=== PATIENT | female | born 1960 | race Caucasian/White ===

== ENCOUNTER 2016-12-16 11:37 | Emergency (ER) | payer OTHER ==
[2016-12-16] MEDS ORDERED: HYDROmorphone INJ* 1 MG/ML CARPUJECT SYRINGE IV ONE ×2 (12:25→13:51)
[2016-12-16] MEDS ORDERED: NS 0.9% 1000 ML* 1,000 ML IV ONE (12:25)
[2016-12-16] MEDS ORDERED: LORazepam INJ* 2 MG/ML 1 ML VIAL IV PUSH ONE (12:26)
[2016-12-16] MEDS ORDERED: Ondansetron INJ* 2 MG/ML VIAL ONE (12:37)
[2016-12-16 12:48] LABS: Hematocrit 45 % (35-47); Hemoglobin 14.8 g/dl (12.0-16.0); Mean Corpuscular HGB Conc 33 g/dl (31-36); Mean Corpuscular Hemoglobin 30 pg (27-31); Mean Corpuscular Volume 91 fL (80-97); Mean Platelet Volume 9 um3 (7.4-10.4); Red Blood Count 4.94 10^6/ul (4.0-5.4); Red Cell Distribution Width 14 % (10.5-15); White Blood Count 7.3 10^3/ul (3.5-10.8)
[2016-12-16 13:10] LABS: Albumin 4.2 g/dL (3.2-5.2); BUN/Creatinine Ratio 16.3 (8-20); C Reactive Protein 5.73 mg/L (< 5.00); Calcium 9.6 mg/dL (8.6-10.3); EGFR African American 87.8 (>60); EGFR Non-African American 68.3 (>60); Globulin 3.7 g/dL (2-4); Total Bilirubin 0.5 mg/dL (0.2-1.0); Total Protein 7.9 g/dL (6.4-8.9)
[2016-12-16] MEDS ORDERED: Ondansetron INJ* 2 MG/ML VIAL IV ONE (13:51)
--- NOTE | 2016-12-16 15:15 | RAD ---
INDICATION: Chronic, atraumatic back and leg pain. COMPARISON: CT abdomen pelvis October 05, 2011 TECHNIQUE: Noncontrast axial source images was performed from the thoracolumbar junction to the sacrum. Coronal and and sagittal reformatted images were generated. FINDINGS: Vertebrae: There is no fracture or acute focal bony lesion. Alignment: The lumbar vertebrae are normally aligned. Central Canal/Neuroforamina: L1-L2: minor circumferential bulging the disc and moderate facet arthropathy. Wide canal and foraminal patency. L2-L3: Mild broad-based circumferential bulging the disc. No significant canal or foraminal compromise. Minor facet overgrowth. L3-L4: Minor facet overgrowth. Wide canal and foraminal patency. L4-L5: Moderate disc space narrowing with 2 mm retrolisthesis of L4 relative to L5. Moderate-sized central disc herniation likely impinging upon the L5 nerve root within the canal. L5-S1 moderate broad-based circumferential bulging the disc. No direct nerve root impingement or significant canal compromise. Note that MR imaging is a more sensitive method to evaluate the canal and foramina. Intervertebral disc spaces: The disc spaces are maintained. Soft tissues: The paravertebral soft tissues are normal. Other: None IMPRESSION: MULTIPLE DEGENERATIVE DISC DISEASE. THE MOST SIGNIFICANT FINDINGS ARE AT L4-L5 WHERE THERE IS A MODERATE-SIZED CENTRAL DISC HERNIATION IMPINGING ON THE L5 NERVE ROOTS BILATERALLY.
--- NOTE | 2016-12-16 16:00 | ED ---
Cecelia Purdy Janilya, scribed for Chloe Tate MD on 12/16/16 at 1228 . Back Pain - HPI Summary HPI Summary: A 56 y/o female came in to [facility] presenting w/ a gradual onset of constant lower back pain starting 2 days ago. Pt reports she felt fine on 12/14/2016, and after she came home, her lower back "felt funny". Pt states she was carrying laundry baskets. Pt c/o tailbone pain that radiates to both of her legs. In addition, she states both of her legs are numb and tingly. Pt feels weak when she stands up due to leg pain. No PMHx DM, HTN. PMHx hypothyroidism, diverticulitis, asthma Pt has hx of back problems, but no back surgeries. 4 years ago, she was diagnosed as "tailbone unalignment", but has not had problems since then. 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 - History of Current Complaint Chief Complaint: EDBackInjuryPain Stated Complaint: BACK PAIN Time Seen by Provider: 12/16/16 12:07 Onset/Duration: Gradual Onset, Lasting Days, Still Present Onset/Duration: Started Days Ago, Atraumatic, Still Present Timing: Constant, Lasting Days Severity Initially: Moderate Severity Currently: Moderate Pain Intensity: 10 Pain Scale Used: 0-10 Numeric Aggravating Symptom(s): Movement Alleviating Symptom(s): Rest Associated Signs And Symptoms: Positive: Weakness, Numbness, Tingling Related History: Similar Episode Dx As - tailbone unalignment - Risk Factors AAA Risk Factors: Negative TAD Risk Factors: Negative Cauda Equina Risk Factors: Negative Epidural Abscess Risk Factors: Negative - Allergies/Home Medications Allergies/Adverse Reactions: Allergies Allergy/AdvReac Type Severity Reaction Status Date / Time Codeine Allergy Hives Verified 08/18/15 10:08 Ibuprofen [From Advil] Allergy Hives Verified 08/18/15 10:08 Home Medications: Home Medications Albuterol 2.5MG/3ML (0.083%)* [Ventolin 2.5 MG/3 ML NEB.RA*] 2.5 mg INH Q6H PRN 12/16/16 [History Confirmed 12/16/16] Albuterol Sulfate [Proair Respiclick] 2 puff INH Q6HR PRN 12/16/16 [History Confirmed 12/16/16] Levothyroxine TAB* [Synthroid TAB*] 100 mcg PO QAM 12/16/16 [History Confirmed 12/16/16] Sertraline* [Zoloft*] 100 mg PO DAILY 12/16/16 [History Confirmed 12/16/16] PMH/Surg Hx/FS Hx/Imm Hx Endocrine/Hematology History: Reports: Hx Thyroid Disease - hypo Cardiovascular History: Denies: Hx Hypertension Respiratory History: Reports: Hx Asthma, Hx Chronic Obstructive Pulmonary Disease (COPD) GI History: Reports: Hx Diverticulosis Musculoskeletal History: Reports: Hx Back Problems Infectious Disease History: No Infectious Disease History: Denies: Traveled Outside the [place] in Last 30 Days - Family History Known Family History: Negative: Hypertension, Diabetes - Social History Occupation: Employed Full-time Lives: With Family Alcohol Use: None Substance Use Type: Reports: None Hx Tobacco Use: Yes Smoking Status (MU): Light Every Day Tobacco Smoker Review of Systems Positive: Arthralgia - tailbone pain Positive: Weakness, Paresthesia - in legs, Numbness - in legs All Other Systems Reviewed And Are Negative: Yes Physical Exam Triage Information Reviewed: Yes Vital Signs On Initial Exam: Initial Vitals Temp Pulse Resp BP Pulse Ox 98.6 F 80 20 121/78 94 12/16/16 12:12 12/16/16 12:12 12/16/16 12:12 12/16/16 12:12 12/16/16 12:12 Vital Signs Reviewed: Yes Appearance: Positive: Well-Appearing, No Pain Distress Skin: Positive: Warm, Skin Color Reflects Adequate Perfusion, Dry Eyes: Positive: EOMI, ALFREDO ENT: Positive: Pharynx normal, TMs normal Neck: Positive: Supple, Nontender Cardiovascular: Positive: RRR. Negative: Murmur, Rub - no gallops Abdomen Description: Positive: Nontender, Soft. Negative: Distended, Guarding - no rebound Bowel Sounds: Positive: Present Musculoskeletal: Negative: Strength/ROM Intact - tailbone tenderness in sacrum, Edema Left, Edema Right Neurological: Positive: Sensory/Motor Intact, Alert, Oriented to Person Place, Time, CN Intact II-III Psychiatric: Positive: Affect/Mood Appropriate Diagnostics - Vital Signs Vital Signs Temp Pulse Resp BP Pulse Ox 12/16/16 12:12 98.6 F 80 20 121/78 94 - Laboratory Lab Results: Lab Results 12/16/16 12/16/16 Range/Units 12:30 12:30 WBC 7.3 (3.5-10.8) 10^3/ul RBC 4.94 (4.0-5.4) 10^6/ul Hgb 14.8 (12.0-16.0) g/dl Hct 45 (35-47) % MCV 91 (80-97) fL MCH 30 (27-31) pg MCHC 33 (31-36) g/dl RDW 14 (10.5-15) % Plt Count 246 (150-450) 10^3/ul MPV 9 (7.4-10.4) um3 Neut % (Auto) 62.5 (38-83) % Lymph % (Auto) 23.6 L (25-47) % [place] % (Auto) 11.1 H (1-9) % Eos % (Auto) 2.0 (0-6) % Baso % (Auto) 0.8 (0-2) % Absolute Neuts (auto) 4.5 (1.5-7.7) 10^3/ul Absolute Lymphs (auto) 1.7 (1.0-4.8) 10^3/ul Absolute Monos (auto) 0.8 (0-0.8) 10^3/ul Absolute Eos (auto) 0.1 (0-0.6) 10^3/ul Absolute Basos (auto) 0.1 (0-0.2) 10^3/ul Absolute Nucleated RBC 0 10^3/ul Nucleated RBC % 0 Sodium 136 (133-145) mmol/L Potassium 4.0 (3.5-5.0) mmol/L Chloride 105 (101-111) mmol/L Carbon Dioxide 26 (22-32) mmol/L Anion Gap 5 (2-11) mmol/L BUN 14 (6-24) mg/dL Creatinine 0.86 (0.51-0.95) mg/dL Est GFR ( Amer) 87.8 (>60) Est GFR (Non-Af Amer) 68.3 (>60) BUN/Creatinine Ratio 16.3 (8-20) Glucose 95 (70-100) mg/dL Calcium 9.6 (8.6-10.3) mg/dL Total Bilirubin 0.50 (0.2-1.0) mg/dL AST 16 (13-39) U/L ALT 17 (7-52) U/L Alkaline Phosphatase 75 (34-104) U/L C-Reactive Protein 5.73 H (< 5.00) mg/L Total Protein 7.9 (6.4-8.9) g/dL Albumin 4.2 (3.2-5.2) g/dL Globulin 3.7 (2-4) g/dL Albumin/Globulin Ratio 1.1 (1-3) Result Diagrams: 12/16/16 12:30 12/16/16 12:30 Lab Statement: Any lab studies that have been ordered have been reviewed, and results considered in the medical decision making process. - CT lumbar spine CT Interpretation: Positive (See Comments) - IMPRESSION: MULTIPLE DEGENERATIVE DISC DISEASE. THE MOST SIGNIFICANT FINDINGS ARE AT L4-L5 WHERE THERE IS A MODERATE-SIZED CENTRAL DISC HERNIATION IMPINGING ON THE L5 NERVE RO[address]S BILATERALLY. CT Interpretation Completed By: Radiologist Back Pain Course/Dx - Course Course Of Treatment: 56 yo with pain over sacrum CT shows nerve root impingement no true neurologic signs some radicular pain down both legs but normal great toe strength patellar dtr's are a 1. Able to ambulate after pain meds close f/u with pmd, made pt and her aware of need to come back for worsened symptoms and he will watch her carefully on her pain meds - Diagnoses Provider Diagnoses: Degenerative disk disease Discharge - Discharge Plan Condition: Stable Disposition: HOME Prescriptions: Cyclobenzaprine TAB* [Flexeril TAB*] 10 mg PO TID PRN #20 tab PRN Reason: Spasms oxyCODONE/Acetamin 5/325 MG* [Percocet 5/325 TAB*] 1 tab PO Q6H PRN #20 tab MDD 4 PRN Reason: Pain Patient Education Materials: Back Pain (ED) Forms: *Work Release Referrals: Non Staff,Doctor [Primary Care Provider] - Additional Instructions: Follow up with your primary care provider if symptoms persist or worsen. The documentation as recorded by the Cecelia reagan Janilya accurately reflects the service I personally performed and the decisions made by me, Chloe Tate MD.
[2016-12-16 16:10] VITALS: BP 101/68
== END 2016-12-16 16:09 | disposition home or self-care (01) ==
LOC: ED 11:37
DX: M51.36 Other intervertebral disc degeneration, lumbar region (principal); R20.9 Unspecified disturbances of skin sensation; M54.5 Low back pain; R53.1 Weakness; F17.210 Nicotine dependence, cigarettes, uncomplicated
CPT/HCPCS: 36415; 72131; 80053; 85025; 86140; 96374; 96375; 99283; J1170; J2060; J2405

== ENCOUNTER 2017-11-11 10:47 | Observation (INO) | payer OTHER ==
[~2017-11-11 10:47] MED LIST: Buffered Lidocaine 0.9% SYRIN* 5 ML/SYR SYRINGE INTRADERM ONE; DiMENhydriNATE IV* 50 MG/ML VIAL IV PUSH PRN; Famotidine IV* 10 MG/ML 2 ML (20 mg) IV ONE; Morphine INJ* 2 MG/ML 1 ML CARPUJECT IV PRN; PROCHLORPERAZINE INJ 5 MG/ML 2 ML VIAL IV PRN; oxyCODONE/Acetamin 5/325 MG* TAB PO PRN
[2017-11-11] MEDS ORDERED: Buffered Lidocaine 0.9% SYRIN* 5 ML/SYR SYRINGE ONE (10:52)
[2017-11-11] MEDS ORDERED: Famotidine IV* 10 MG/ML 2 ML (20 mg) ONE (10:52)
[2017-11-11] MEDS ORDERED: ceFAZolin 2 GM PREMIX (*) 2 GM/50 ML BAG IVPB ONE (10:52)
[2017-11-11] MEDS ORDERED: Bacitracin IV* 50,000 UNITS INJ ONE (11:36)
[2017-11-11] MEDS ORDERED: Lidocaine 1.5% EPI 1:200,000* 30 ML SDV ONE (11:36)
[2017-11-11] MEDS ORDERED: Thrombin 5,000 UNITS* 1 APPLIC KIT - topical use - TOPICAL ONE (11:36)
[2017-11-11] MEDS ORDERED: Midazolam* 1 MG/ML 10 ML VIAL (10 MG) ONE (11:48)
[2017-11-11] MEDS ORDERED: KETAMINE HCL* 50 MG/ML 10 ML VIAL ONE (11:48)
[2017-11-11] MEDS ORDERED: fentaNYL* 50 MCG/ML 2 ML VIAL (100 MCG VIAL) ONE ×2 (11:48→14:25)
[2017-11-11] MEDS ORDERED: Atracurium* 10 MG/ML 10 ML VIAL ONE (11:48)
[2017-11-11] MEDS ORDERED: Lidocaine 2% PF * 5 ML VIAL ONE (12:53)
[2017-11-11] MEDS ORDERED: Phenylephrine IV* 40 MCG/ML 10 ML SYRINGE ONE (12:53)
[2017-11-11] MEDS ORDERED: Glycopyrrolate IV* 0.2 MG/ML 1 ML VIAL ONE (12:54)
[2017-11-11] MEDS ORDERED: Neostigmine Methylsulfate* 2 MG/2 ML SYRINGE ONE (12:54)
[2017-11-11] MEDS ORDERED: Propofol* 10 MG/ML 20 ML BTL IV PUSH ONE (12:54)
[2017-11-11] MEDS ORDERED: Ondansetron INJ* 2 MG/ML VIAL ONE (12:54)
[2017-11-11] MEDS ORDERED: EPHEDrine (Pressors)* 50 MG/ML VIAL ONE (12:54)
[2017-11-11] MEDS ORDERED: Dexamethasone IV* 4 MG/ML 1 ML (4 MG) ONE (12:54)
[2017-11-11] MEDS ORDERED: Acetaminophen TAB* 325 MG PO PRN (14:01)
[2017-11-11] MEDS ORDERED: Albuterol HFA INHALER* 8 gm MDI INH PRN (14:15)
[2017-11-11] MEDS ORDERED: DiMENhydriNATE IV* 50 MG/ML VIAL ONE (14:25)
[2017-11-11] MEDS: fentaNYL* 50 MCG/ML 2 ML VIAL (100 MCG VIAL) IV PRN ×4 (14:27→15:39)
[2017-11-11] MEDS ORDERED: oxyCODONE/Acetamin 5/325 MG* TAB ONE (14:33)
[2017-11-11] MEDS ORDERED: Albuterol 2.5 MG/3 ML NEB.SOL* (0.083%) ONE (14:45)
--- NOTE | 2017-11-11 16:19 | RAD ---
INDICATION: Lumbar discectomy COMPARISON: None TECHNIQUE: A single crosstable lateral view obtained at 1305 hours is submitted FINDINGS: The operative control film shows a curved hemostat and retractors at the degenerated L4-L5 disc space level
[2017-11-11] MEDS ORDERED: Mouth Piece, Nicotine* 1 EACH CARTRIDGE INH PRN (16:36)
[2017-11-11] MEDS ORDERED: Nicotine Inhaler* 10 MG AMP INH PRN (16:36)
[2017-11-11] MEDS: Nicotine PATCH 21 MG/24 HR* PATCH TRANSDERM SCH (17:26)
[2017-11-11] MEDS: Albuterol 2.5 MG/3 ML NEB.SOL* (0.083%) INH SCH ×2 (18:29→21:51)
[2017-11-11] MEDS: oxyCODONE/Acetamin 5/325 MG* TAB PO PRN (22:12)
[2017-11-12] MEDS: oxyCODONE/Acetamin 5/325 MG* TAB PO PRN ×2 (03:19→07:40)
[2017-11-12] MEDS ORDERED: Nicotine Patch Removal NOTE FOLLOW UP SCH (06:00)
[2017-11-12] MEDS: Albuterol 2.5 MG/3 ML NEB.SOL* (0.083%) INH SCH (07:15)
[2017-11-12 07:23] VITALS: BP 99/57
[2017-11-12] MEDS: Nicotine PATCH 21 MG/24 HR* PATCH TRANSDERM SCH (07:34)
--- NOTE | 2017-11-12 07:59 | PN ---
Progress Note - Progress Note Date of Service: 11/12/17 SOAP: Subjective: []POD # 1 Pre op leg pain relieved C/O back pain Irritaion at bovie sight lateral left thigh Objective: []Dressing saturated Neuro intact Irritation at bovie site left thigh Assessment: [] Satis post op course Plan: []D/C today D/C Instructions given
[2017-11-12] MEDS ORDERED: Levothyroxine TAB* 125 MCG TAB PO SCH (08:00)
[2017-11-12] MEDS ORDERED: Pregabalin CAP(*) 100 MG PO SCH (09:00)
[2017-11-12] MEDS ORDERED: Sertraline* 100 MG TAB PO SCH (09:00)
[2017-11-12] MEDS ORDERED: Montelukast Sodium TAB* 10 MG PO SCH (09:00)
--- NOTE | 2017-11-13 21:20 | OP ---
OPERATIVE REPORT: DATE OF OPERATION: 11/11/17 DATE OF : 60 PRIMARY SURGEON: Justen Amezcua MD DRYWALL CONTRACTOR: [place] Wilkerson ANESTHESIA: General. PRE-OP DIAGNOSIS: Herniated nucleus pulposus, L4-L5 on the right. POST-OP DIAGNOSIS: Herniated nucleus pulposus, L4-L5 on the right. OPERATIVE PROCEDURE: Lumbar diskectomy, L4-L5 on the right with microdissection. DESCRIPTION OF PROCEDURE: After satisfactory general anesthesia was obtained, the patient was placed on the operating table in a prone position with the chest supported on the Antonio frame and the back slightly flexed. The lumbar region was then clipped, prepped, and draped in a sterile manner for cornell mbar laminectomy and a skin incision outlined from L4 to L5. This incision was infiltrated with 1% X ylocaine with epinephrine, after which it was turned down sharply to the level of the lumbar fascia. The fascia was divided along the spinous processes of L4 and L5 and the paraspinal musculature strip ped away from these posterior elements. An intraoperative x-ray was obtained verifying proper inters pace localization, after which a partial hemilaminectomy was carried out by removing the inferior asp ect of the L4 lamina and medial aspect of the facet complex on the right side with a combination of t he Midas Oliver drill and Kerrison rongeurs. Ligamentum flavum was removed with the Kerrison, after whi ch the operating microscope was brought into the field and the remainder of the procedure was done un yoselyn microscopic visualization. Utilizing microdissection, epidural venous structures were coagulated and divided. Projecting beneath the L5 nerve root and actually adherent to the L5 nerve root was a subcapsular disk herniation. Utilizing microdissection, this was dissected free from the L5 nerve ro ot. Heaped up disk material was then decompressed utilizing pituitary forceps and curettes. At the conclusion of the decompression, the L5 nerve root was noted to be free in its course. After assurin g adequate hemostasis, the wound was thoroughly irrigated, after which a piece of Gelfoam was placed over the laminectomy defect. The fascia was then reapproximated with 0 Vicryl suture, the subcutaneo us tissue was closed with 3-0 Vicryl suture, and the skin closed with skin clips. The estimated bloo d loss was less than 50 cc and the final sponge, padding, and needle counts were correct. The patien t was taken to the recovery room, extubated and in stable condition. [id number]/[facility] #: [id number]
== END 2017-11-12 10:10 | disposition home or self-care (01) ==
LOC: OR 10:47 → SSU 16:15
PROVIDERS: ADMIT Neurological Surgery; ATTEND Neurological Surgery
PROC: 0SB20ZZ Excision of Lumbar Vertebral Disc, Open Approach (ICD-10-PCS; principal; 2017-11-11 12:30)
DX: M51.06 Intervertebral disc disorders with myelopathy, lumbar region (principal); M51.26 Other intervertebral disc displacement, lumbar region; J44.1 Chronic obstructive pulmonary disease with (acute) exacerbation; M54.9 Dorsalgia, unspecified; G89.18 Other acute postprocedural pain
CPT/HCPCS: 72100; 94640; A9270-GY; G0378; J0690; J1100; J1240; J2250; J2405; J2704; J3010

== ENCOUNTER 2019-12-28 05:55 | Inpatient (IN) | payer OTHER ==
[~2019-12-28 05:55] MED LIST changes: -Buffered Lidocaine 0.9% SYRIN* 5 ML/SYR SYRINGE INTRADERM ONE; +Buffered Lidocaine 1% SYRIN* 1 ML/SYRINGE INTRADERM ONE; -DiMENhydriNATE IV* 50 MG/ML VIAL IV PUSH PRN; -Famotidine IV* 10 MG/ML 2 ML (20 mg) IV ONE; -Morphine INJ* 2 MG/ML 1 ML CARPUJECT IV PRN; -PROCHLORPERAZINE INJ 5 MG/ML 2 ML VIAL IV PRN; -oxyCODONE/Acetamin 5/325 MG* TAB PO PRN
--- OUTSIDE RECORDS SUMMARY | 2019-12-28 05:58 | XMS REPORT | Continuity of Care Document ---
:1960 External Reference #:[id number] Author Name Karin Del Rio MD (transmitted by agent of provider Didi Adler) Address [address], [address] [place] [address] Care Team Providers Name Role Phone Allison Parra RPA - Medical Care Team Information Foundry Engineer Ramo Wiley III, MD - Ophthalmology Care Team Information Foundry Engineer Karin Del Rio MD - Pulmonary Care Team Information Foundry Engineer Disease Problems Active Problems Provider Date Degeneration of lumbar intervertebral disc Justen Amezcua M.D. Onset: 2017 Asthma Allison Parra, PA Onset: 02/03/2019 Note: COPD Diabetes mellitus Allison Parra PA Onset: 02/04/2019 Note: noted 2017 Hypothyroidism Allison Parra, PA Onset: 02/04/2019 Mechanical ptosis Allison Parra, PA Onset: 03/04/2019 Note: OD Age-related cataract Allison Parra PA Onset: 03/04/2019 Note: mild 2019 Steatosis of liver Allison Parra PA Onset: 03/10/2019 Note: hepatomegaly Hyperlipidemia Allison Parra, PA Onset: 12/07/2019 Mixed anxiety and depressive disorder Allison Parra, PA Onset: 12/07/2019 Social History Type Date Description Comments Sex Unknown Tobacco Use Start: Unknown Quit ~01/2019 ETOH Use Rarely consumes alcohol Recreational Drug Use Denies Drug Use Tobacco Use Start: Unknown End: Patient is a former Unknown smoker Smoking Status Reviewed: 12/23/19 Patient is a former smoker Exercise Type/Frequency Exercises regularly bike...on hold with hip pain Allergies, Adverse Reactions, Alerts Active Allergies Reaction Severity Comments Date Codeine Urticaria Moderate 01/24/2015 Ibuprofen Urticaria Moderate 01/24/2015 Metformin Diarrhea 02/03/2019 Jardiance Yeast vaginitis 03/08/2019 Medications Active Medications SIG Qnty Indications Ordering Date Provider Qigerry Membrenovaishnavi When out of bed Vassilios 09/15/2019 after surgery MD Sybil Lisinopril 1 by mouth every 90tabs E11.65 Ramo 09/07/2019 2.5mg day MD Ymuiko Tablets Metformin HCL 1 by mouth bid 60tabs E11.65 Ramo 07/22/2019 500mg MD Yumiko Tablets Anoro Ellipta 1 inhalation Rafiq Chavez, 07/05/2019 daily M.D. 62.5-25mcg/Inh Aerosol Vitamin B12 1 by mouth every 90tabs Ramo 06/23/2019 100mcg day MD Yumiko Tablets Sertraline HCL 1 by mouth every 90tabs Ramo 06/10/2019 100mg day MD Yumiko Tablets Lantus Solostar 45 units sq once E11. Bulmaro Nino MD 06/08/2019 a day 100Unit/ML Solution Pen-Inject Atorvastatin Calcium 1 by mouth every 90tabs Ramo 05/17/2019 day MD Yumiko 10mg Tablets Albuterol Sulfate 1 vial via 360ml Ramo nebulizer 4-6 MD Ymuiko (2.5mg/3ML) 0.083% times daily as Nebulizer needed Levothyroxine Sodium take 1 tablet by 90tabs Ramo mouth once daily MD Yumiko 125mcg Tablets Proair HFA inhale 1 to 2 8.500gm Ramo 108(90Base) puffs every 4 MD Yumiko mcg/Act Aerosol hours if needed Montelukast Sodium 1 by mouth every 90tabs Ramo 10mg day MD Yumiko Tablets Januvia 1 by mouth every 90tabs E11. Ramo 100mg Tablets day MD Yumiko BD Pen use as directed E11.65 Unknown Needle/Short/Ultra-Fi ne/31G X 8mm 31G X 8 mm Misc History Medications Oxygen 3L via n/c cont, 1units Ramo Calderon MD 06/23/2019 - concentrator at home 07/22/2019 [facility] is supplier. Order add humidification to Ramo Calderon MD 06/23/2019 - oxygen concentrator 07/22/2019 Immunizations CPT Code Status Date Vaccine Reaction Lot # [id number] Given 12/07/2019 Influenza Virus Vaccine, risks and benefits Flu>3yr / Quadrivalent, Split, discussed. [id number] Preservative Free Vital Signs Date Vital Result Comment 12/23/2019 8:54am Height 68 inches 5'8" Weight 194.00 lb Heart Rate 90 /min BP Systolic 104 mmHg BP Diastolic 70 mmHg O2 % BldC Oximetry 97 % BMI (Body Mass Index) 29.5 kg/m2 12/17/2019 1:48pm Height 68 inches 5'8" Weight 196.31 lb Heart Rate 82 /min BP Systolic 118 mmHg BP Diastolic 80 mmHg Pain Level 6 Lower Back under right buttock BMI (Body Mass Index) 29.8 kg/m2 Results Test Acquired Date Facility Test Result H/L Range Note Urinalysis Profile 12/14/2019 [facility] Urine Color Yellow [address] [place] [address] [phone] Urine Appearance Cloudy Urine Specific [place] 1.027 Normal 1.010-1.030 Urine pH 5.0 Normal 5-9 Urine Urobilinogen Negative Negative Urine Ketones Negative Negative Urine Protein Negative Negative Urine Leukocytes 3+ Abnormal Negative Urine Blood Negative Negative Urine Nitrite Negative Negative Urine Bilirubin Negative Negative Urine Glucose Negative Negative Urine White Blood Cell 2+(11-20/hpf) Abnormal Absent Urine Red Blood Cell Absent Absent Urine Bacteria Absent Absent Urine Squamous Epithelial Cell Present Abnormal Absent Urine Hyaline Casts Present Abnormal Absent Urine Calcium Oxalate Cryst Present Abnormal Absent CBC No Diff 12/14/2019 [facility] White Blood 7.2 10^3/uL Normal 3.5-10.[address] [place] [address] [phone] Red Blood Count 4.49 10^6/uL Normal 3.70-4.87 Hemoglobin 14.1 g/dL Normal 12.0-16.0 Hematocrit 40 % Normal 35-47 Mean Corpuscular Volume 89 fL Normal 80-97 Mean Corpuscular Hemoglobin 32 pg High 27-31 Mean Corpuscular HGB Conc 36 g/dL Normal 31-36 Red Cell Distribution Width 14 % Normal 10-15 Platelet Count 277 10^3/uL Normal 150-450 Mean Platelet Volume 8.9 fL Normal 7.4-10.4 Type & Screen 12/14/2019 [facility] Patient Blood [place] [address] [phone] Antibody Screen NEGATIVE Inr/Protime 12/14/2019 [facility] Inr 1.03 Normal 0.82-1.[address] [place] [address] [phone] Laboratory test 12/14/2019 [facility] Partial 33.2 Normal 26.0 -38.[address] [address] Time PTT [phone] HCG 0.70 mIU/mL 2 Basic Metabolic 12/14/2019 [facility] Sodium 138 mmol/L Normal 135-[address] [place] [address] [phone] Potassium 4.5 mmol/L Normal 3.5-5.0 Chloride 105 mmol/L Normal 101-111 Co2 Carbon Dioxide 25 mmol/L Normal 22-32 Anion Gap 8 mmol/L Normal 2-11 Glucose 79 mg/dL Normal 70-100 Blood Urea Nitrogen 15 mg/dL Normal 6-24 Creatinine 0.83 mg/dL Normal 0.51-0.95 BUN/Creatinine Ratio 18.1 Normal 8-20 Calcium 9.9 mg/dL Normal 8.6-10.3 Egfr Non- 70.4 >60 Egfr 85.1 >60 3 Urine Culture And 12/14/2019 [facility] Urine Culture SEE RESULT [address] [place] [address] [phone] Ua Routine 12/07/2019 [facility] Ua Specific 1.020 [place] Ua PH 6.0 Ua Color yellow Ua Appera clear Ua WBC neg. Ua Protein neg. Ua Glucose neg. Ua Ketones neg. Ua Bilirubin neg. Ua Urobilinogen neg. Ua Nitrite neg. Urine Microalbumin 12/04/2019 [facility] Ur Microalbumin < 15.0 Random (mg/L) mg/[place] [address] [phone] Urine Creatinine 126.70 mg/dL Urine Microalbumin/Creatinine TNP <31 5 Lipid Profile 12/04/2019 [facility] Triglycerides 108 mg/dL 6 (Trig/Chol/HDL) [address] [place] [address] [phone] Cholesterol 96 mg/dL 7 HDL Cholesterol 29.9 mg/dL 8 LDL Cholesterol 45 mg/dL 9 Laboratory test 12/04/2019 [facility] Hemoglobin A1c 7.1 % High 4.0-5.6 10 finding 101 (Glyco HGB) [place] [address] [phone] Comp Metabolic 12/04/2019 [facility] Sodium 140 Normal 135- 145 Panel 101 mmol/[place] [address] [phone] Potassium 4.6 mmol/L Normal 3.5-5.0 Chloride 107 mmol/L Normal 101-111 Co2 Carbon Dioxide 25 mmol/L Normal 22-32 Anion Gap 8 mmol/L Normal 2-11 Glucose 125 mg/dL High 70-100 Blood Urea Nitrogen 17 mg/dL Normal 6-24 Creatinine 0.83 mg/dL Normal 0.51-0.95 BUN/Creatinine Ratio 20.5 High 8-20 Calcium 9.5 mg/dL Normal 8.6-10.3 Total Protein 7.0 g/dL Normal 6.4-8.9 Albumin 4.4 g/dL Normal 3.2-5.2 Globulin 2.6 g/dL Normal 2-4 Albumin/Globulin Ratio 1.7 Normal 1-3 Total Bilirubin 0.40 mg/dL Normal 0.2-1.0 Alkaline Phosphatase 70 U/L Normal 34-104 Alt 23 U/L Normal 7-52 Ast 16 U/L Normal 13-39 Egfr Non- 70.4 >60 Egfr 85.1 >60 11 Laboratory test 11/06/2019 [facility] Hemoglobin A1c 7.9 % High 4.0-5.[address] (Glyco HGB) [place] [address] [phone] Laboratory test 10/14/2019 [facility] Hemoglobin A1c 8.0 % High 4.0-5.[address] (Glyco HGB) [place] [address] [phone] CMP Panel 10/14/2019 [facility] Sodium 139 Normal 135-[address] mmol/[place] [address] [phone] Potassium 4.4 mmol/L Normal 3.5-5.0 Chloride 106 mmol/L Normal 101-111 Co2 Carbon Dioxide 25 mmol/L Normal 22-32 Anion Gap 8 mmol/L Normal 2-11 Glucose 153 mg/dL High 70-100 Blood Urea Nitrogen 19 mg/dL Normal 6-24 Creatinine 0.93 mg/dL Normal 0.51-0.95 BUN/Creatinine Ratio 20.4 High 8-20 Calcium 9.7 mg/dL Normal 8.6-10.3 Total Protein 7.3 g/dL Normal 6.4-8.9 Albumin 4.3 g/dL Normal 3.2-5.2 Globulin 3.0 g/dL Normal 2-4 Albumin/Globulin Ratio 1.4 Normal 1-3 Total Bilirubin 0.40 mg/dL Normal 0.2-1.0 Alkaline Phosphatase 72 U/L Normal 34-104 Alt 36 U/L Normal 7-52 Ast 27 U/L Normal 13-39 Egfr Non- 61.7 >60 Egfr 74.7 >60 14 Urine Microalbumin 10/14/2019 [facility] Ur Microalbumin < 15.[address] (mg/L) mg/[place] [address] [phone] Urine Creatinine 163.45 mg/dL Urine Microalbumin/Creatinine TNP <31 15 Laboratory test 07/27/2019 [facility] Hemoglobin A1c 8.7 % High 4.0-5.6 [address] (Glyco HGB) [place] [address] [phone] Comp Metabolic 07/27/2019 [facility] Sodium 139 Normal 135- [address] mmol/[place] [address] [phone] Potassium 4.5 mmol/L Normal 3.5-5.0 Chloride 105 mmol/L Normal 101-111 Co2 Carbon Dioxide 26 mmol/L Normal 22-32 Anion Gap 8 mmol/L Normal 2-11 Glucose 140 mg/dL High 70-100 Blood Urea Nitrogen 14 mg/dL Normal 6-24 Creatinine 0.87 mg/dL Normal 0.51-0.95 BUN/Creatinine Ratio 16.1 Normal 8-20 Calcium 9.6 mg/dL Normal 8.6-10.3 Total Protein 6.7 g/dL Normal 6.4-8.9 Albumin 4.3 g/dL Normal 3.2-5.2 Globulin 2.4 g/dL Normal 2-4 Albumin/Globulin Ratio 1.8 Normal 1-3 Total Bilirubin 0.40 mg/dL Normal 0.2-1.0 Alkaline Phosphatase 66 U/L Normal 34-104 Alt 26 U/L Normal 7-52 Ast 20 U/L Normal 13-39 Egfr Non- 66.6 >60 Egfr 80.6 >60 17 Laboratory 07/16/2019 [facility] TSH (Thyroid 0.43 Normal 0.34 -5.60 test finding [address] Stim Horm) mcIU/[place] [address] [phone] 1 Standard intensity warfarin therapeutic range: 2.0-3.0 High intensity warfarin therapeutic range: 2.5-3.5 2 <5.0 Negative 5.0 - 25.0 Indeterminate (Repeat testing recommended after 72 hours) >25.0 Positive Perimenopausal women can display HCG levels of up to 20 mIU/mL 3 Because ethnic data is not always readily available, this report includes an eGFR for both -Americans and non- Americans. The National Kidney Disease Education Program (NKDEP) does not endorse the use of the MDRD equation for patients that are not between the ages of 18 and 70, are , have extremes of body size, muscle mass, or nutritional status, or are non- or non-. According to the National Kidney Foundation, irrespective of diagnosis, the stage of the disease is based on the level of kidney function: Stage Description GFR(mL/min/1.73 m(2)) 1 Kidney damage with normal or decreased GFR 90 2 Kidney damage with mild decrease in GFR 60-89 3 Moderate decrease in GFR 30-59 4 Severe decrease in GFR 15-29 5 Kidney failure <15 (or dialysis) 4 SEE RESULT BELOW Name: ROXANA DU : [address]: Hugo Devine MD Acct: [id number] Unit: [id number] AGE: 59 Location: [facility] Re12/14/19 SEX: F Status: REG REF SPEC: [id number] WILSON: 12/14/19-1202 [facility] DR: Hugo Devine MD REQ: [id number] RECD: 12/14/19 STATUS: POPEYE MAI DR: Allison Parra PA _ SOURCE: URINE SPDESC: ORDERED: Urine Culture Procedure Result Reported Site Urine Culture Final 12/15/19- 1010 ML No Growth (<1,000 CFU/mL) * ML - Main Lab . END OF REPORT DEPARTMENT OF PATHOLOGY, [address] [place] [id number] Mundo Dos Santos M.D. Director [facility] # [id number] 5 Unable to calculate due to low microalbumin 6 Desirable: <150 Borderline High: 150-199 High: 200-499 Very High: >500 7 Desirable: <200 Borderline High: 200-239 High: >239 8 Low: <40 Desirable: 40-60 High: >60 9 Desirable: <100 Near Optimal: 100-129 Borderline High: 130-159 High: 160-189 Very High: >189 10 Therapeutic target for the treatment of diabetes mellitus patients is <7% HBA1C, and in selective patients <6.0%. Please refer to [place] [employer] diabetic care guidelines for further information. 11 Because ethnic data is not always readily available, this report includes an eGFR for both -Americans and non- Americans. The National Kidney Disease Education Program (NKDEP) does not endorse the use of the MDRD equation for patients that are not between the ages of 18 and 70, are , have extremes of body size, muscle mass, or nutritional status, or are non- or non-. According to the National Kidney Foundation, irrespective of diagnosis, the stage of the disease is based on the level of kidney function: Stage Description GFR(mL/min/1.73 m(2)) 1 Kidney damage with normal or decreased GFR 90 2 Kidney damage with mild decrease in GFR 60-89 3 Moderate decrease in GFR 30-59 4 Severe decrease in GFR 15-29 5 Kidney failure <15 (or dialysis) 12 Therapeutic target for the treatment of diabetes mellitus patients is <7% HBA1C, and in selective patients <6.0%. Please refer to [place] [employer] diabetic care guidelines for further information. 13 Therapeutic target for the treatment of diabetes mellitus patients is <7% HBA1C, and in selective patients <6.0%. Please refer to [place] [employer] diabetic care guidelines for further information. 14 Because ethnic data is not always readily available, this report includes an eGFR for both -Americans and non- Americans. The National Kidney Disease Education Program (NKDEP) does not endorse the use of the MDRD equation for patients that are not between the ages of 18 and 70, are , have extremes of body size, muscle mass, or nutritional status, or are non- or non-. According to the National Kidney Foundation, irrespective of diagnosis, the stage of the disease is based on the level of kidney function: Stage Description GFR(mL/min/1.73 m(2)) 1 Kidney damage with normal or decreased GFR 90 2 Kidney damage with mild decrease in GFR 60-89 3 Moderate decrease in GFR 30-59 4 Severe decrease in GFR 15-29 5 Kidney failure <15 (or dialysis) 15 Unable to calculate due to low microalbumin 16 Therapeutic target for the treatment of diabetes mellitus patients is <7% HBA1C, and in selective patients <6.0%. Please refer to [place] [employer] diabetic care guidelines for further information. 17 Because ethnic data is not always readily available, this report includes an eGFR for both -Americans and non- Americans. The National Kidney Disease Education Program (NKDEP) does not endorse the use of the MDRD equation for patients that are not between the ages of 18 and 70, are , have extremes of body size, muscle mass, or nutritional status, or are non- or non-. According to the National Kidney Foundation, irrespective of diagnosis, the stage of the disease is based on the level of kidney function: Stage Description GFR(mL/min/1.73 m(2)) 1 Kidney damage with normal or decreased GFR 90 2 Kidney damage with mild decrease in GFR 60-89 3 Moderate decrease in GFR 30-59 4 Severe decrease in GFR 15-29 5 Kidney failure <15 (or dialysis) Procedures Date Code Description Status 03/03/2019 489882485 Diabetic Retinal Eye Exam Completed 10/01/2018 [id number] Mammogram Completed 09/29/2017 [id number] Bone Mineral Density Test Completed 08/15/2014 [id number] Colonoscopy Completed Medical Devices Description No Information Available Encounters Type Date Location Provider Dx Diagnosis Office Visit 12/07/2019 [facility] Allison Z01.818 Encounter for other 9:00a [place] Parra preprocedural examination M43.16 Spondylolisthesis, lumbar region M51.36 Other intervertebral disc degeneration, lumbar region M47.26 Other spondylosis with radiculopathy, lumbar region E11.65 Type 2 diabetes mellitus with hyperglycemia Z23 Encounter for immunization E78.5 Hyperlipidemia, unspecified E03.9 Hypothyroidism, unspecified J44.9 Chronic obstructive pulmonary disease, unspecified Office 11/08/2019 [facility] Ramo E11.65 Type 2 diabetes Visit 1:45p MD Yumiko mellitus with hyperglycemia Office 11/01/2019 [facility] Ramo E11.65 Type 2 diabetes Visit 1:45p MD Yumiko mellitus with hyperglycemia Office 09/15/2019 Neurosurgery Vassilios M43.16 Spondylolisthesis, Visit 12:00p [facility] MD Sybil lumbar region M51.36 Other intervertebral disc degeneration, lumbar region M47.26 Other spondylosis with radiculopathy, lumbar region Office Visit 09/07/2019 9:00a [facility] Primary Allison E11.65 Type 2 diabetes Care [place] Parra mellitus with hyperglycemia J44.9 Chronic obstructive pulmonary disease, unspecified Office 08/12/2019 [facility] Primary Care Ramo E11.65 Type 2 diabetes Visit 10:45a MD Yumiko mellitus with hyperglycemia Office 08/04/2019 [place] Marquez M54.16 Radiculopathy, Visit 11:30a [facility] lumbar region M43.17 Spondylolisthesis, lumbosacral region Office Visit 07/22/2019 [facility] Primary Ramo E11.65 Type 2 diabetes 1:30p Care MD Yumiko mellitus with hyperglycemia Office Visit 07/15/2019 [facility] Primary Ramo E11.65 Type 2 diabetes 1:00p Care MD Yumiko mellitus with hyperglycemia M54.16 Radiculopathy, lumbar region J44.9 Chronic obstructive pulmonary disease, unspecified Office Visit 07/01/2019 Neurosurgery Solomon M54.16 Radiculopathy, 11:30a [facility] [place] lumbar region Office Visit 06/23/2019 [facility] Primary Care Allison E11.65 Type 2 diabetes 2:00p [place] Parra mellitus with hyperglycemia F39 Unspecified mood [affective] disorder E03.9 Hypothyroidism, unspecified M16.11 Unilateral primary osteoarthritis, right hip M47.896 Other spondylosis, lumbar region J44.9 Chronic obstructive pulmonary disease, unspecified Assessments Date Code Description Provider 12/23/2019 Z01.811 Encounter for preprocedural respiratory Karin Del Rio MD examination 12/23/2019 J44.9 Chronic obstructive pulmonary disease, Karin Del Rio MD unspecified 12/17/2019 M43.16 Spondylolisthesis, lumbar region Hugo Devine MD 12/17/2019 M51.36 Other intervertebral disc degeneration, Hugo Devine MD lumbar region 12/17/2019 M47.26 Other spondylosis with radiculopathy, Hugo Devine MD lumbar region 12/07/2019 Z01.818 Encounter for other preprocedural Allison [place], [place] examination 12/07/2019 M43.16 Spondylolisthesis, lumbar region Allison [place], [place] 12/07/2019 M51.36 Other intervertebral disc degeneration, Allison [place], [place] lumbar region 12/07/2019 M47.26 Other spondylosis with radiculopathy, Allison [place], [place] lumbar region 12/07/2019 E11.65 Type 2 diabetes mellitus with Allison [place], [place] hyperglycemia 12/07/2019 Z23 Encounter for immunization Allison [place], [place] 12/07/2019 E78.5 Hyperlipidemia, unspecified Allison [place], [place] 12/07/2019 E03.9 Hypothyroidism, unspecified Allison [place], [place] 12/07/2019 J44.9 Chronic obstructive pulmonary disease, Allison [place], [place] unspecified 11/08/2019 E11.65 Type 2 diabetes mellitus with Ramo Calderon MD hyperglycemia 11/01/2019 E11.65 Type 2 diabetes mellitus with Ramo Calderon MD hyperglycemia 10/05/2019 M43.16 Spondylolisthesis, lumbar region Hugo Devine MD 10/05/2019 M51.36 Other intervertebral disc degeneration, Hugo Devine MD lumbar region 10/05/2019 M47.26 Other spondylosis with radiculopathy, Hugo Devine MD lumbar region 09/15/2019 M43.16 Spondylolisthesis, lumbar region Hugo Devine MD 09/15/2019 M51.36 Other intervertebral disc degeneration, Hugo Devine MD lumbar region 09/15/2019 M47.26 Other spondylosis with radiculopathy, Hugo Devine MD lumbar region 09/07/2019 E11.65 Type 2 diabetes mellitus with Allison [place], [place] hyperglycemia 09/07/2019 J44.9 Chronic obstructive pulmonary disease, Allison Parra, [place] unspecified 08/12/2019 E11.65 Type 2 diabetes mellitus with Ramo Calderon MD hyperglycemia 08/04/2019 M54.16 Lumbar radiculopathy Solomon [place], [place] 08/04/2019 M43.17 Spondylolisthesis L5/S1 level Solomon [place], [place] 07/22/2019 E11.65 Type 2 diabetes mellitus with Ramo Calderon MD hyperglycemia 07/15/2019 E11.65 Type 2 diabetes mellitus with Ramo Calderon MD hyperglycemia 07/15/2019 M54.16 Lumbar radiculopathy Ramo Calderon MD 07/15/2019 J44.9 Chronic obstructive pulmonary disease, Ramo Calderon MD unspecified 07/01/2019 M54.16 Lumbar radiculopathy [place], [place] 06/23/2019 E11.65 Type 2 diabetes mellitus with Allison Parra PA hyperglycemia 06/23/2019 F39 Unspecified mood [affective] disorder Allison Parra, [place] 06/23/2019 E03.9 Hypothyroidism, unspecified Allison [place], [place] 06/23/2019 M16.11 Unilateral primary osteoarthritis, right Allison Parra , [place] hip 06/23/2019 M47.896 Other spondylosis, lumbar region Alliosn Parra, [place] 06/23/2019 J44.9 Chronic obstructive pulmonary disease, Allisons[place]hash Parra, [place] unspecified Plan of Treatment Future Appointment(s):06/22/2020 11:00 am - Diana Archer NP at [facility]03/07/2020 9:30 am - [place] at [facility]01/31/2020 12:00 pm - Hugo Devine MD at [facility]01/05/2020 12:30 pm - Hugo Devine MD at [facility]12/28/2019 7:30 am - Hugo Devine MD at [facility]12/23/2019 - Karin Del Rio MDZ01.811 Encounter for preprocedural respiratory examinationFollow up:6 [id number] Chronic obstructive pulmonary disease, unspecified Functional Status Description No Information Available Mental Status Description No Information Available Referrals Refer to Reason for Referral Status Appt Date Karin Del Rio MD Pre-op clearance, COPD [Lumbar surgery planned Sent for 12/28/19] Please arrive at the time listed on your referral, this is your check in time. Please be sure to bring your insurance cards & photo ID as well as any copayment associated with the insurance. If you have any questions or concerns, please feel free to contact Cookie @ [phone]. Thank you. [address] [place] [phone]
--- OUTSIDE RECORDS SUMMARY | 2019-12-28 05:58 | XMS REPORT | Continuity of Care Document ---
:1960 External Reference #:[id number] Author Name Hugo Devine MD (transmitted by agent of provider Azalea Barton ) Address [address] [place] [address] Care Team Providers Name Role Phone Ramo Wiley III, MD - Ophthalmology Care Team Information Transitional Studies Instructor Karin Del Rio MD - Pulmonary Care Team Information Transitional Studies Instructor [phone] Disease Problems Active Problems Provider Date Degeneration of lumbar intervertebral disc Justen Amezcua M.D. Onset: 2017 Asthma Allison Parra, PA Onset: 02/03/2019 Note: COPD Diabetes mellitus Allison Parra, PA Onset: 02/04/2019 Note: noted 2018 Hypothyroidism Allison Aida, PA Onset: 02/04/2019 Mechanical ptosis Allison Parra, PA Onset: 03/04/2019 Note: OD Age-related cataract Allisonmarry Parra, PA Onset: 03/04/2019 Note: mild 2019 Steatosis of liver Allison Prara, PA Onset: 03/10/2019 Note: hepatomegaly Hyperlipidemia Allison Albert, PA Onset: 12/07/2019 Mixed anxiety and depressive disorder Allison Albert, PA Onset: 12/07/2019 Social History Type Date Description Comments Sex Unknown Tobacco Use Start: Unknown Quit ~01/2019 ETOH Use Rarely consumes alcohol Recreational Drug Use Denies Drug Use Tobacco Use Start: Unknown End: Patient is a former Unknown smoker Smoking Status Reviewed: 12/17/19 Patient is a former smoker Exercise Type/Frequency Exercises regularly bike...on hold with hip pain Allergies, Adverse Reactions, Alerts Active Allergies Reaction Severity Comments Date Codeine Urticaria Moderate 01/24/2015 Ibuprofen Urticaria Moderate 01/24/2015 Metformin Diarrhea 02/03/2019 Jardiance Yeast vaginitis 03/08/2019 Medications Active Medications SIG Qnty Indications Ordering Date Provider Arpit Luque When out of bed Vasshayios 09/15/2019 after surgery MD Sybil Lisinopril 1 by mouth every 90tabs E11.65 09/07/2019 2.5mg day MD Yumiko Tablets Metformin HCL 1 by mouth bid 60tabs E11.65 Ramo 07/22/2019 500mg MD Yumiko Tablets Anoro Ellipta 1 inhalation Rafiq Chavez, 07/05/2019 daily M.D. 62.5-25mcg/Inh Aerosol Vitamin B12 1 by mouth every 90tabs Ramo 06/23/2019 100mcg day MD Yumiko Tablets Sertraline HCL 1 by mouth every 30tabs Ramo 06/10/2019 100mg day MD Yumiko Tablets Lantus Solostar 45 units sq once E11.65 Bulmaro Nino MD 06/08/2019 a day 100Unit/ML Solution Pen-Inject Atorvastatin Calcium 1 by mouth every 90tabs Ramo 05/17/2019 day MD Yumiko 10mg Tablets Albuterol Sulfate 1 vial via 360ml Ramo nebulizer 4-6 MD Yumiko (2.5mg/3ML) 0.083% times daily as Nebulizer needed Levothyroxine Sodium take 1 tablet by 90tabs Ramo mouth once daily MD Yumiko 125mcg Tablets Proair HFA inhale 1 to 2 8.500gm Ramo 108(90Base) puffs every 4 MD Yumiko mcg/Act Aerosol hours if needed Montelukast Sodium 1 by mouth every 90tabs Ramo 10mg day MD Yumiko Tablets Januvia 1 by mouth every 90tabs E11.65 100mg Tablets lisa Calderon MD BD Pen use as directed E11. Unknown Needle/Short/Ultra-Fi ne/31G X 8mm 31G X 8 mm Misc History Medications Oxygen 3L via n/c cont, 1units Ramo Calderon MD 06/23/2019 - concentrator at home 07/22/2019 [facility] is supplier. Order add humidification to Ramo Calderon MD 06/23/2019 - oxygen concentrator 07/22/2019 Immunizations CPT Code Status Date Vaccine Reaction Lot # [id number] Given 12/07/2019 Influenza Virus Vaccine, risks and benefits Flu>3yr / Quadrivalent, Split, discussed. [id number] Preservative Free Vital Signs Date Vital Result Comment 12/17/2019 1:48pm Height 68 inches 5'8" Weight 196.31 lb Heart Rate 82 /min BP Systolic 118 mmHg BP Diastolic 80 mmHg Pain Level 6 Lower Back under right buttock BMI (Body Mass Index) 29.8 kg/m2 12/07/2019 8:57am Height 68 inches 5'8" Weight 201.12 lb Heart Rate 90 /min BP Systolic Sitting 124 mmHg BP Diastolic Sitting 68 mmHg O2 % BldC Oximetry 96 % BMI (Body Mass Index) 30.6 kg/m2 Results Test Acquired Date Facility Test Result H/L Range Note Urinalysis Profile 12/14/2019 [facility] Urine Color Yellow [address] [place] [address] [phone] Urine Appearance Cloudy Urine Specific Dickens 1.027 Normal 1.010-1.030 Urine pH 5.0 Normal [...] Present Abnormal Absent CBC No Diff 12/14/2019 [facility] White Blood 7.2 10^3/uL Normal 3.5-10.[address] [place] [address] [phone] Red Blood Count 4.49 10^6/uL Normal 3.70-4.87 [...] fL Normal 7.4-10.4 Type & Screen 12/14/2019 [facility] Patient Blood Type A Positive [address] [place] [address] [phone] Antibody Screen NEGATIVE Inr/Protime 12/14/2019 [facility] Inr 1.03 Normal 0.82-1.[address] [place] [address] [phone] Laboratory test 12/14/2019 [facility] Partial 33.2 Normal 26.0 -38.[address] [address] Time PTT [phone] HCG 0.70 mIU/mL 2 Basic Metabolic 12/14/2019 [facility] Sodium 138 mmol/L Normal 135-[address] [place] [address] [phone] Potassium 4.5 mmol/L Normal 3.5-5.0 Chloride 105 mmol/L Normal 101-111 Co2 Carbon Dioxide 25 mmol/L Normal 22-32 Anion Gap 8 mmol/L Normal 2-11 Glucose 79 mg/dL Normal 70-100 Blood Urea Nitrogen 15 mg/dL Normal 6-24 Creatinine 0.83 mg/dL Normal 0.51-0.95 BUN/Creatinine Ratio 18.1 Normal 8-20 Calcium 9.9 mg/dL Normal 8.6-10.3 Egfr Non- 70.4 >60 Egfr 85.1 >60 3 Urine Culture And 12/14/2019 [facility] Urine Culture SEE RESULT [address] [place] [address] [phone] Ua Routine 12/07/2019 [facility] Ua Specific 1.020 Dickens Ua PH 6.0 Ua Color yellow Ua Appera clear Ua WBC neg. Ua Protein neg. Ua Glucose neg. Ua Ketones neg. Ua Bilirubin neg. Ua Urobilinogen neg. Ua Nitrite neg. Urine Microalbumin 12/04/2019 [facility] Ur Microalbumin < 15.[address] (mg/L) mg/[place] [address] [phone] Urine Creatinine 126.70 mg/dL Urine Microalbumin/Creatinine TNP <31 5 Lipid Profile 12/04/2019 [facility] Triglycerides 108 mg/dL 6 (Trig/Chol/HDL) [address] [place] [address] [phone] Cholesterol 96 mg/dL 7 HDL Cholesterol 29.9 mg/dL 8 LDL Cholesterol 45 mg/dL 9 Laboratory test 12/04/2019 [facility] Hemoglobin A1c 7.1 % High 4.0-5.[address] (Glyco HGB) [place] [address] [phone] Comp Metabolic 12/04/2019 [facility] Sodium 140 Normal 135- [address] mmol/[place] [address] [phone] Potassium 4.6 mmol/L Normal 3.5-5.0 Chloride 107 [...] Egfr 85.1 >60 11 Laboratory test 11/06/2019 [facility] Hemoglobin A1c 7.9 % High 4.0-5.[address] (Glyco HGB) [place] [address] [phone] Laboratory test 10/14/2019 [facility] Hemoglobin A1c 8.0 % High 4.0-5.6 [address] (Glyco HGB) [place] [address] [phone] CMP Panel 10/14/2019 [facility] Sodium 139 Normal 135-[address] mmol/[place] [address] [phone] Potassium 4.4 mmol/L Normal 3.5-5.0 Chloride 106 [...] Egfr 74.7 >60 14 Urine Microalbumin 10/14/2019 [facility] Ur Microalbumin < 15.[address] (mg/L) mg/[place] [address] [phone] Urine Creatinine 163.45 mg/dL Urine Microalbumin/Creatinine TNP <31 15 Laboratory test 07/27/2019 [facility] Hemoglobin A1c 8.7 % High 4.0-5.6 [address] (Glyco HGB) [place] [address] [phone] Comp Metabolic 07/27/2019 [facility] Sodium 139 Normal 135- [address] mmol/[place] [address] [phone] Potassium 4.5 mmol/L Normal 3.5-5.0 Chloride 105 [...] >60 Egfr 80.6 >60 17 Laboratory 07/16/2019 [facility] TSH (Thyroid 0.43 Normal 0.34 -5.60 test finding [address] Stim Horm) mcIU/[place] [address] [phone] Standard intensity warfarin therapeutic range: 2.0-3.0 [...] [address]: Hugo Devine MD Acct: [id number] Unit: [id number] AGE: 59 Location: [facility] Re12/14/19 SEX: F Status: REG REF SPEC: [id number] WILSON: 12/14/19-[address] [facility] [address]: Hugo Devine MD REQ: [id number] RECD: 12/14/19 STATUS: COMP SERGEI DR: Allison Parra PA _ SOURCE: URINE SPDESC: ORDERED: Urine Culture Procedure Result Reported Site Urine Culture Final 12/15/19- 1010 ML No Growth (<1,000 CFU/mL) * ML - Main Lab . END OF REPORT DEPARTMENT OF PATHOLOGY, [address] [place] [address] Mundo Dos Santos M.D. Director [place] # [id number] 5 Unable to calculate due to low [...] in selective patients <6.0%. Please refer to [employer] diabetic care guidelines for further [...] in selective patients <6.0%. Please refer to [employer] diabetic care guidelines for further information. 13 Therapeutic target for the treatment of diabetes mellitus patients is <7% HBA1C, and in selective patients <6.0%. Please refer to [employer] diabetic care guidelines for further [...] in selective patients <6.0%. Please refer to [employer] diabetic care guidelines for further [...] dialysis) Procedures Date Code Description Status 03/03/2019 907942731 Diabetic Retinal Eye Exam Completed 10/01/2018 [id number] Mammogram Completed 09/29/2017 647084488 Bone Mineral Density Test Completed 08/15/2014 [id number] Colonoscopy Completed Medical Devices Description No Information Available Encounters Type Date Location Provider Dx Diagnosis Office Visit 12/07/2019 [facility] Allison Z01.818 Encounter for other 9:00a [place] Parra preprocedural examination M43.16 Spondylolisthesis, lumbar region M51.36 Other intervertebral disc degeneration, lumbar region M47.26 Other spondylosis with radiculopathy, lumbar region E11.65 Type 2 diabetes mellitus with hyperglycemia Z23 Encounter for immunization E78.5 Hyperlipidemia, unspecified E03.9 Hypothyroidism, unspecified J44.9 Chronic obstructive pulmonary disease, unspecified Office 11/08/2019 [facility] Ramo E11.65 Type 2 diabetes Visit 1:45p MD Yumiko mellitus with hyperglycemia Office 11/01/2019 [facility] Ramo E11.65 Type 2 diabetes Visit 1:45p MD Yumiko mellitus with hyperglycemia Office 09/15/2019 Neurosurgery Vassilios M43.16 Spondylolisthesis, Visit 12:00p [facility] Devine MD lumbar region M51.36 Other intervertebral disc degeneration, lumbar region M47.26 Other spondylosis with radiculopathy, lumbar region Office Visit 09/07/2019 9:00a [facility] Primary Allison E11.65 Type 2 diabetes Care [place] Parra mellitus with hyperglycemia J44.9 Chronic obstructive pulmonary disease, unspecified Office 08/12/2019 [facility] Ramo E11.65 Type 2 diabetes Visit 10:45a MD Yumiko mellitus with hyperglycemia Office 08/04/2019 [place] Marquez M54.16 Radiculopathy, Visit 11:30a [facility] lumbar region M43.17 Spondylolisthesis, lumbosacral region Office Visit 07/22/2019 [facility] Primary Ramo E11.65 Type 2 diabetes 1:30p Care MD Yumiko mellitus with hyperglycemia Office Visit 07/15/2019 [facility] Primary Ramo E11.65 Type 2 diabetes 1:00p Care MD Yumiko mellitus with hyperglycemia M54.16 Radiculopathy, lumbar region J44.9 Chronic obstructive pulmonary disease, unspecified Office Visit 07/01/2019 Neurosurgery Solomon M54.16 Radiculopathy, 11:30a [facility] [place] lumbar region Office Visit 06/23/2019 [facility] Allison E11.65 Type 2 diabetes 2:00p [place] Parra mellitus with hyperglycemia F39 Unspecified mood [affective] disorder E03.9 Hypothyroidism, unspecified M16.11 Unilateral primary osteoarthritis, right hip M47.896 Other spondylosis, lumbar region J44.9 Chronic obstructive pulmonary disease, unspecified Assessments Date Code Description Provider 12/17/2019 M43.16 Spondylolisthesis, lumbar region Hugo Devine MD 12/17/2019 M51.36 Other intervertebral disc degeneration, Hugo Devine MD lumbar region 12/17/2019 M47.26 Other spondylosis with radiculopathy, Hugo Devine MD lumbar region 12/07/2019 Z01.818 Encounter for other preprocedural Allison Albert, PA examination 12/07/2019 M43.16 Spondylolisthesis, lumbar region Allison Albert, PA 12/07/2019 M51.36 Other intervertebral disc degeneration, Allison Albert, PA lumbar region 12/07/2019 M47.26 Other spondylosis with radiculopathy, Allison Albert, PA lumbar region 12/07/2019 E11.65 Type 2 diabetes mellitus with Allison Albert, PA hyperglycemia 12/07/2019 Z23 Encounter for immunization Alliosn Albert, PA 12/07/2019 E78.5 Hyperlipidemia, unspecified Allison Albert, PA 12/07/2019 E03.9 Hypothyroidism, unspecified Allison Albert, PA 12/07/2019 J44.9 Chronic obstructive pulmonary disease, Allison Albert, PA unspecified 11/08/2019 E11.65 Type 2 diabetes [...] E11.65 Type 2 diabetes mellitus with Allison Albert, PA hyperglycemia 09/07/2019 J44.9 Chronic obstructive pulmonary disease, Allison Albert, PA unspecified 08/12/2019 E11.65 Type 2 diabetes mellitus with Ramo Calderon MD hyperglycemia 08/04/2019 M54.16 Lumbar radiculopathy Solomon [place], PA 08/04/2019 M43.17 Spondylolisthesis L5/S1 level Solomon [place] PA 07/22/2019 E11.65 Type 2 diabetes mellitus with Ramo Calderon MD hyperglycemia 07/15/2019 E11.65 Type 2 diabetes mellitus with Ramo Calderon MD hyperglycemia 07/15/2019 M54.16 Lumbar radiculopathy Ramo Calderon MD 07/15/2019 J44.9 Chronic obstructive pulmonary disease, Ramo Calderon MD unspecified 07/01/2019 M54.16 Lumbar radiculopathy Solomon [place] PA 06/23/2019 E11.65 Type 2 diabetes mellitus with Allison Parra PA hyperglycemia 06/23/2019 F39 Unspecified mood [affective] disorder Allisonsubhash Parra, PA 06/23/2019 E03.9 Hypothyroidism, unspecified Allison Albert, PA 06/23/2019 M16.11 Unilateral primary osteoarthritis, right Allison Parra , PA hip 06/23/2019 M47.896 Other spondylosis, lumbar region Allison Parra, PA 06/23/2019 J44.9 Chronic obstructive pulmonary disease, Allison Aida, PA unspecified Plan of Treatment Future Appointment(s):03/07/2020 9:30 am - Allison Parra PA at [facility]12/23/2019 9:30 am - Karin Del Rio MD at [facility]01/31/2020 12:00 pm - Hugo Devine MD at [facility]01/05/2020 12:30 pm - Hugo Devine MD at [facility]12/28/2019 7:30 am - Hugo Devine MD at [facility]12/17/2019 - Hugo Devine MDM43.16 Spondylolisthesis, lumbar regionFollow up:RV one week, one month, three months postop.M51.36 Other intervertebral disc degeneration, lumbar outygcE63.26 Other spondylosis with radiculopathy, lumbar region Functional Status Description No Information Available Mental [...] please feel free to contact Cookie @ [phone]. Thank you. [address] [place] [phone]
--- OUTSIDE RECORDS SUMMARY | 2019-12-28 05:58 | XMS REPORT | Continuity of Care Document ---
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 Onset: 2017 Asthma Allison Parra, PA Onset: 02/03/2019 Diabetes mellitus Allison Parra, PA Onset: 02/04/2019 Note: noted 2018 Hypothyroidism Allison Parra, PA Onset: 02/04/2019 Mechanical ptosis Allison Parra, PA Onset: 03/04/2019 Note: OD Age-related cataract Allison Parra, PA Onset: 03/04/2019 Note: mild 2019 Steatosis of liver Allison Parra PA Onset: 03/10/2019 Note: hepatomegaly Social History Type Date Description Comments Sex Unknown Tobacco Use Start: Unknown Quit ~01/2019 ETOH Use Rarely consumes alcohol Recreational Drug Use Denies Drug Use Tobacco Use Start: Unknown End: Patient is a former Unknown smoker Smoking Status Reviewed: 09/15/19 Patient is a former smoker Exercise Type/Frequency Exercises regularly bike...on hold with hip pain Allergies, Adverse Reactions, Alerts Active Allergies Reaction Severity Comments Date Codeine Urticaria Moderate 01/24/2015 Ibuprofen Urticaria Moderate 01/24/2015 Metformin Diarrhea 02/03/2019 Jardiance Yeast vaginitis 03/08/2019 Medications Active Medications SIG Qnty Indications Ordering Date Provider Tlso Brace When out of bed Vass[place]os 09/15/2019 after surgery MD Sybil Lisinopril 1 by mouth every 90tabs E11.65 09/07/2019 2.5mg day MD Y[place]iko Tablets Metformin HCL 1 by mouth bid 60tabs E11.65 Ramo 07/22/2019 500mg MD [place] Tablets Anoro Ellipta 1 inhalation Scott Rafiq, 07/05/2019 daily M.D. 62.5-25mcg/Inh Aerosol Vitamin B12 1 by mouth every 90tabs 06/23/2019 100mcg day MD [place] Tablets Sertraline HCL 1 by mouth every 30tabs 06/10/2019 100mg day MD [place] Tablets Lantus Solostar 45 units sq once Bulmaro Nino MD 06/08/2019 a day 100Unit/ML Solution Pen-Inject Atorvastatin Calcium 1 by mouth every 90tabs Ramo 05/17/2019 day MD [place] 10mg Tablets Aleve 1-2 by mouth 60caps Justen Amezcua, 06/15/2018 220mg Capsules twice a day as M.D. needed BD Pen use as directed Unknown Needle/Short/Ultra-Fi ne/31G X 8mm 31G X 8 mm Misc Januvia 1 by mouth every 90tabs Ramo 100mg Tablets day MD [place] Montelukast Sodium 1 by mouth every 90tabs Ramo 10mg day MD [place] Tablets Proair HFA inhale 1 to 2 8.500gm Ramo 108(90Base) puffs every 4 MD Y[place]iko mcg/Act Aerosol hours if needed Levothyroxine Sodium take 1 tablet by 90tabs Ramo mouth once daily MD [place]iko 125mcg Tablets Albuterol Sulfate 1 vial via 360ml Ramo nebulizer 4-6 MD Y[place]iko (2.5mg/3ML) 0.083% times daily as Nebulizer needed History Medications Oxygen 3L via n/c cont, 1units Ramo 06/23/2019 - concentrator at MD Yumiko 07/22/2019 home [facility] is supplier. Order add humidification 06/23/2019 - to oxygen MD Yumiko 07/22/2019 concentrator Terbinafine HCL 1 by mouth every day 90tabs B35.1 Ramo 05/20/2019 - MD Y[place] 09/07/2019 250mg Tablets Immunizations Description No Information Available Vital Signs Date Vital Result Comment 09/15/2019 12:23pm Height 68 inches 5'8" Weight 204.00 lb BP Systolic 126 mmHg BP Diastolic 82 mmHg Pain Level 5 BMI (Body Mass Index) 31.0 kg/m2 09/07/2019 9:06am Height 68 inches 5'8" Weight 204.19 lb Heart Rate 88 /min BP Systolic Sitting 122 mmHg BP Diastolic Sitting 68 mmHg O2 % BldC Oximetry 96 % BMI (Body Mass Index) 31.0 kg/m2 Results Test Acquired Date Facility Test Result H/L Range Note Laboratory test 10/14/2019 [facility] Hemoglobin A1c 8.0 % High 4.0-5.[address] (Glyco HGB) [place] [address] [phone] CMP Panel 10/14/2019 [facility] Sodium 139 mmol/L Normal 135- [address] [place] [address] [phone] Potassium 4.4 mmol/L Normal 3.5-5.0 Chloride 106 [...] Egfr Non- 61.7 >60 Egfr 74.7 >60 2 Urine Microalbumin 10/14/2019 [facility] Ur Microalbumin < 15.[address] (mg/L) mg/[place] [address] [phone] Urine Creatinine 163.45 mg/dL Urine Microalbumin/Creatinine TNP <31 3 Laboratory test 07/27/2019 [facility] Hemoglobin A1c 8.7 % High 4.0-5.[address] (Glyco HGB) [place] [address] [phone] Comp Metabolic 07/27/2019 [facility] Sodium 139 Normal 135- [address] mmol/[place] [address] [phone] Potassium 4.5 mmol/L Normal 3.5-5.0 Chloride 105 [...] Egfr Non- 66.6 >60 Egfr 80.6 >60 5 Laboratory 07/16/2019 [facility] TSH (Thyroid 0.43 Normal 0.34 -5.60 test finding [address] Stim Horm) mcIU/[place] [address] [phone] Laboratory 06/11/2019 [facility] Hemoglobin 9.2 % High 4.0- 5.6 6 test finding [address] A1c ([place] [address] HGB) [phone] TSH (Thyroid Stim Horm) 2.37 mcIU/mL Normal 0.34-5.60 Vitamin D Total 25(Oh) 22.8 ng/mL Normal 20-50 7 Comp Metabolic 06/11/2019 [facility] Sodium 140 mmol/L Normal 135-[address] [place] [address] [phone] Potassium 3.9 mmol/L Normal 3.5-5.0 Chloride 107 mmol/L Normal 101-111 Co2 Carbon Dioxide 26 mmol/L Normal 22-32 Anion Gap 7 mmol/L Normal 2-11 Glucose 143 mg/dL High 70-100 Blood Urea Nitrogen 31 mg/dL High 6-24 Creatinine 1.04 mg/dL High 0.51-0.95 BUN/Creatinine Ratio 29.8 High 8-20 Calcium 9.1 mg/dL Normal 8.6-10.3 Total Protein 6.5 g/dL Normal 6.4-8.9 Albumin 4.0 g/dL Normal 3.2-5.2 Globulin 2.5 g/dL Normal 2-4 Albumin/Globulin Ratio 1.6 Normal 1-3 Total Bilirubin 0.70 mg/dL Normal 0.2-1.0 Alkaline Phosphatase 61 U/L Normal 34-104 Alt 50 U/L Normal 7-52 Ast 30 U/L Normal 13-39 Egfr Non- 54.2 >60 Egfr 65.6 >60 8 Lipid Profile 06/11/2019 [facility] Triglycerides 87 mg/dL 9 (Trig/Chol/HDL) [address] [place] [address] [phone] Cholesterol 116 mg/dL 10 HDL Cholesterol 39.5 mg/dL 11 LDL Cholesterol 59 mg/dL 12 Urine Microalbumin 06/11/2019 [facility] Ur Microalbumin 30.4 mg /L Random [address] (mg/L) [place] [address] [phone] Urine Creatinine 288.08 mg/dL Urine Microalbumin/Creatinine 10.5 Normal <31 1 Therapeutic target for the treatment of diabetes mellitus patients is <7% HBA1C, and in selective patients <6.0%. Please refer to [place] [employer] diabetic care guidelines for further information. 2 Because ethnic data is not always readily [...] 15-29 5 Kidney failure <15 (or dialysis) 3 Unable to calculate due to low microalbumin 4 Therapeutic target for the treatment of diabetes mellitus patients is <7% HBA1C, and in selective patients <6.0%. Please refer to [place] [employer] diabetic care guidelines for further information. 5 Because ethnic data is not always readily [...] 15-29 5 Kidney failure <15 (or dialysis) 6 Therapeutic target for the treatment of diabetes mellitus patients is <7% HBA1C, and in selective patients <6.0%. Please refer to [place] [employer] diabetic care guidelines for further information. 7 Total 25-Hydroxyvitamin D2 and D3 (25-OH-VitD) <10 ng/mL (severe deficiency) 10-19 ng/mL (mild to moderate deficiency) 20-50 ng/mL (optimum levels) 51-80 ng/mL (increased risk of hypercalciuria) >80 ng/mL (toxicity possible) 8 Because ethnic data is not always readily [...] 15-29 5 Kidney failure <15 (or dialysis) 9 Desirable: <150 Borderline High: 150-199 High: 200-499 Very High: >500 10 Desirable: <200 Borderline High: 200-239 High: >239 11 Low: <40 Desirable: 40-60 High: >60 12 Desirable: <100 Near Optimal: 100-129 Borderline High: 130-159 High: 160-189 Very High: >189 Procedures Date Code Description Status 03/03/2019 376179099 Diabetic Retinal Eye Exam Completed 10/01/2018 [id number] Mammogram Completed 09/29/2017 [id number] Bone Mineral Density Test Completed 08/15/2014 [id number] Colonoscopy Completed Medical Devices Description No Information Available Encounters Type Date Location Provider Dx Diagnosis Office Visit 09/15/2019 Neurosurgery V[place] M43.16 Spondylolisthesi 12:00p [facility] MD s, lumbar region M51.36 Other intervertebral disc degeneration, lumbar region M47.26 Other spondylosis with radiculopathy, lumbar region Office Visit 09/07/2019 9:00a [facility] Primary Allison E11.65 Type 2 diabetes Care [place] Parra mellitus with hyperglycemia J44.9 Chronic obstructive pulmonary disease, unspecified Office 08/12/2019 [facility] Care Ramo E11.65 Type 2 diabetes Visit 10:45a MD Y[place]iko mellitus with hyperglycemia Office 08/04/2019 Neurosurgery [place] Mar[place] M54.16 Radiculopathy, Visit 11:30a [facility] lumbar region M43.17 Spondylolisthesis, lumbosacral region Office Visit 07/22/2019 [facility] Primary Ramo E11.65 Type 2 diabetes 1:30p Care MD Yumiko mellitus with hyperglycemia Office Visit 07/15/2019 [facility] Primary Ramo E11.65 Type 2 diabetes 1:00p Care MD [place] mellitus with hyperglycemia M54.16 Radiculopathy, lumbar region J44.9 Chronic obstructive pulmonary disease, unspecified Office Visit 07/01/2019 Neurosurgery Solomon M54.16 Radiculopathy, 11:30a [facility] [place] lumbar region Office Visit 06/23/2019 [facility] Primary Care Allison E11.65 Type 2 diabetes 2:00p [place] Parra mellitus with hyperglycemia F39 Unspecified mood [affective] disorder E03.9 Hypothyroidism, unspecified M16.11 Unilateral primary osteoarthritis, right hip M47.896 Other spondylosis, lumbar region J44.9 Chronic obstructive pulmonary disease, unspecified Office Visit 06/10/2019 [facility] Primary Ramo E11.65 Type 2 diabetes 2:15p Care MD [place] mellitus with hyperglycemia E03.9 Hypothyroidism, unspecified F41.1 Generalized anxiety disorder B35.1 Tinea unguium J44.9 Chronic obstructive pulmonary disease, unspecified F33.1 Major depressive disorder, recurrent, moderate Office Visit 05/20/2019 9:30a [facility] Primary Allison Z01.818 Encounter for other Care [place] Parra preprocedural examination M16.11 Unilateral primary osteoarthritis, right hip B35.1 Tinea unguium E11.65 Type 2 diabetes mellitus with hyperglycemia E03.9 Hypothyroidism, unspecified F41.1 Generalized anxiety disorder Assessments Date Code Description Provider 11/01/2019 E11.65 Type 2 diabetes mellitus with [...] 09/15/2019 M47.26 Other spondylosis with radiculopathy, Hugo Devnie MD lumbar region 09/07/2019 E11.65 Type 2 diabetes mellitus with Allison Parra PA hyperglycemia 09/07/2019 J44.9 Chronic obstructive pulmonary [...] E11.65 Type 2 diabetes mellitus with Allison Parra, PA hyperglycemia 06/23/2019 F39 Unspecified mood [affective] disorder Allison Alcolu, PA 06/23/2019 E03.9 Hypothyroidism, unspecified Allison [place]col[place], PA 06/23/2019 M16.11 Unilateral primary osteoarthritis, right Allison Alcolu , PA hip 06/23/2019 M47.896 Other spondylosis, lumbar region Allison [place]col[place], PA 06/23/2019 J44.9 Chronic obstructive pulmonary disease, All[place] Parra, PA unspecified 06/10/2019 E11.65 Type 2 diabetes mellitus with Ramo Calderon MD hyperglycemia 06/10/2019 E03.9 Hypothyroidism, unspecified Ramo Calderon MD 06/10/2019 F41.1 Generalized anxiety disorder Ramo Calderon MD 06/10/2019 B35.1 Tinea unguium Ramo Calderon MD 06/10/2019 J44.9 Chronic obstructive pulmonary disease, Ramo Calderon MD unspecified 06/10/2019 F33.1 Major depressive disorder, recurrent, Ramo Calderon MD moderate 05/20/2019 Z01.818 Encounter for other preprocedural Allison Parra, PA examination 05/20/2019 M16.11 Unilateral primary osteoarthritis, right [place] hip 05/20/2019 B35.1 Tinea unguium Allison Parra, PA 05/20/2019 E11.65 Type 2 diabetes mellitus with [place] hyperglycemia 05/20/2019 E03.9 Hypothyroidism, unspecified Allison Parra, PA 05/20/2019 F41.1 Generalized anxiety disorder [place] Plan of Treatment Future Appointment(s):11/08/2019 1:45 pm - Ramo Calderon MD at [facility] Care11/01/2019 - Ramo Calderon MDE11.65 Type 2 diabetes mellitus with hyperglycemiaNew Labs:Hemoglobin A1c (Glyco HGB), Ordered: 11/01/19Follow up:1 week. Functional Status Description No Information Available Mental Status Description No Information Available Referrals Description No Information Available
--- OUTSIDE RECORDS SUMMARY | 2019-12-28 05:58 | XMS REPORT | Continuity of Care Document ---
:1960 External Reference #:[id number] Author Name [place] Pulliam (transmitted by agent of provider Arabella rBagg) Address [address] [place] [address] Care Team Providers Name Role Phone Ramo Wiley III, MD - Ophthalmology Care Team Information Convalescent Sitter [phone] Karin Del Rio MD - Pulmonary Care Team Information Convalescent Sitter Disease Problems Active Problems Provider Date Degeneration of lumbar intervertebral disc Justen Amezcua M.D. Onset: 2017 Asthma Allison Parra PA Onset: 02/03/2019 Diabetes mellitus Allison Parra PA Onset: 02/04/2019 Note: noted 2018 Hypothyroidism Allison Parra PA Onset: 02/04/2019 Mechanical ptosis Allison Parra PA Onset: 03/04/2019 Note: OD Age-related cataract [...] a former Unknown smoker Smoking Status Reviewed: 12/07/19 Patient is a former smoker Exercise Type/Frequency [...] 90tabs E11.65 Ramo 09/07/2019 2.5mg day MD Yumiko Tablets Metformin [...] Montelukast Sodium 1 by mouth every 90tabs 10mg day MD [place] Tablets Januvia 1 by mouth every 90tabs E11.65 Ramo 100mg Tablets day MD [place] BD Pen use as directed E11.65 Unknown Needle/Short/Ultra-Fi ne/31G X 8mm 31G X 8 mm Misc History Medications Oxygen 3L via n/c cont, 1units Ramo Calderon MD 06/23/2019 - concentrator at home 07/22/2019 [facility] is supplier. Order add humidification to Ramo Calderon MD 06/23/2019 - oxygen concentrator 07/22/2019 Immunizations CPT Code Status Date Vaccine Reaction Lot # [id number] Given 12/07/2019 Influenza Virus Vaccine, risks and benefits Flu>3yr / Quadrivalent, Split, discussed. [id number] Preservative Free Vital Signs Date Vital Result Comment 12/07/2019 8:57am Height 68 inches 5'8" Weight 201.12 lb Heart Rate 90 /min BP Systolic Sitting 124 mmHg BP Diastolic Sitting 68 mmHg O2 % BldC Oximetry 96 % BMI (Body Mass Index) 30.6 kg/m2 11/08/2019 1:39pm Weight 206.00 lb BP Systolic 118 mmHg BP Diastolic 84 mmHg Results Test Acquired Date Facility Test Result H/L Range Note Ua Routine 12/07/2019 [facility] Ua Specific [place] 1.020 Ua PH 6.0 Ua Color yellow Ua Appera clear Ua WBC neg. Ua Protein neg. Ua Glucose neg. Ua Ketones neg. Ua Bilirubin neg. Ua Urobilinogen neg. Ua Nitrite neg. Comp Metabolic 12/04/2019 [facility] Sodium 140 mmol/L Normal 135-[address] [place] [address] [phone] Potassium 4.6 mmol/L Normal 3.5-5.0 Chloride 107 [...] Egfr Non- 70.4 >60 Egfr 85.1 >60 1 Laboratory test 12/04/2019 [facility] Hemoglobin A1c 7.1 % High 4.0-5.[address] (Glyco HGB) [place] [address] [phone] Lipid Profile 12/04/2019 [facility] Triglycerides 108 3 (Trig/Chol/HDL) [address] mg/[place] [address] [phone] Cholesterol 96 mg/dL 4 HDL Cholesterol 29.9 mg/dL 5 LDL Cholesterol 45 mg/dL 6 Urine Microalbumin 12/04/2019 [facility] Ur Microalbumin < 15.[address] (mg/L) mg/[place] [address] [phone] Urine Creatinine 126.70 mg/dL Urine Microalbumin/Creatinine TNP <31 7 Laboratory test 11/06/2019 [facility] Hemoglobin A1c 7.9 % High 4.0-5.6 [address] (Glyco HGB) [place] [address] [phone] Laboratory test 10/14/2019 [facility] Hemoglobin A1c 8.0 % High 4.0-5.6 [address] (Glyco HGB) [place] [address] [phone] CMP Panel 10/14/2019 [facility] Sodium 139 Normal 135-[address] mmol/[place] [address] [phone] Potassium 4.4 mmol/L Normal 3.5-5.0 Chloride 106 [...] Egfr Non- 61.7 >60 Egfr 74.7 >60 10 Urine Microalbumin 10/14/2019 [facility] Ur Microalbumin < 15.0 Random (mg/L) mg/[place] [address] [phone] Urine Creatinine 163.45 mg/dL Urine Microalbumin/Creatinine TNP <31 11 Comp Metabolic 07/27/2019 [facility] Sodium 139 mmol/L Normal 135-145 [place] [address] [phone] Potassium 4.5 mmol/L Normal 3.5-5.0 Chloride 105 [...] Egfr Non- 66.6 >60 Egfr 80.6 >60 12 Laboratory test 07/27/2019 [facility] Hemoglobin A1c 8.7 % High 4.0-5.6 13 finding (Glyco HGB) [place] [address] [phone] Laboratory test 07/16/2019 [facility] TSH (Thyroid 0.43 Normal 0.34-5.[address] Stim Horm) mcIU/[place] [address] [phone] Laboratory test 06/11/2019 [facility] Hemoglobin A1c 9.2 % High 4.0-5.6 14 finding (Glyco HGB) [place] [address] [phone] TSH (Thyroid Stim Horm) 2.37 mcIU/mL Normal 0.34-5.60 Vitamin D Total 25(Oh) 22.8 ng/mL Normal 20-50 15 Comp Metabolic 06/11/2019 [facility] Sodium 140 mmol/L Normal 135-145 Panel [address] [place] [address] [phone] Potassium 3.9 mmol/L Normal 3.5-5.0 Chloride 107 [...] Egfr Non- 54.2 >60 Egfr 65.6 >60 16 Lipid Profile 06/11/2019 [facility] Triglycerides 87 mg/dL 17 (Trig/Chol/HDL) [address] [place] [address] [phone] Cholesterol 116 mg/dL 18 HDL Cholesterol 39.5 mg/dL 19 LDL Cholesterol 59 mg/dL 20 Urine Microalbumin 06/11/2019 [facility] Ur Microalbumin 30.4 mg /L Random [address] (mg/L) [place] [address] [phone] Urine Creatinine 288.08 mg/dL Urine Microalbumin/Creatinine 10.5 Normal <31 1 Because ethnic data is not always readily [...] 15-29 5 Kidney failure <15 (or dialysis) 2 Therapeutic target for the treatment of diabetes mellitus patients is <7% HBA1C, and in selective patients <6.0%. Please refer to [employer] diabetic care guidelines for further information. 3 Desirable: <150 Borderline High: 150-199 High: 200-499 Very High: >500 4 Desirable: <200 Borderline High: 200-239 High: >239 5 Low: <40 Desirable: 40-60 High: >60 6 Desirable: <100 Near Optimal: 100-129 Borderline High: 130-159 High: 160-189 Very High: >189 7 Unable to calculate due to low microalbumin 8 Therapeutic target for the treatment of diabetes mellitus patients is <7% HBA1C, and in selective patients <6.0%. Please refer to [employer] diabetic care guidelines for further information. 9 Therapeutic target for the treatment of diabetes mellitus patients is <7% HBA1C, and in selective patients <6.0%. Please refer to [employer] diabetic care guidelines for further information. 10 Because ethnic data is not always readily [...] 15-29 5 Kidney failure <15 (or dialysis) 11 Unable to calculate due to low microalbumin 12 Because ethnic data is not always readily [...] 15-29 5 Kidney failure <15 (or dialysis) 13 Therapeutic target for the treatment of diabetes mellitus patients is <7% HBA1C, and in selective patients <6.0%. Please refer to [employer] diabetic care guidelines for further information. 14 Therapeutic target for the treatment of diabetes mellitus patients is <7% HBA1C, and in selective patients <6.0%. Please refer to [employer] diabetic care guidelines for further information. 15 Total 25-Hydroxyvitamin D2 and D3 (25-OH-VitD) <10 ng/mL (severe deficiency) 10-19 ng/mL (mild to moderate deficiency) 20-50 ng/mL (optimum levels) 51-80 ng/mL (increased risk of hypercalciuria) >80 ng/mL (toxicity possible) 16 Because ethnic data is not always readily [...] 15-29 5 Kidney failure <15 (or dialysis) 17 Desirable: <150 Borderline High: 150-199 High: 200-499 Very High: >500 18 Desirable: <200 Borderline High: 200-239 High: >239 19 Low: <40 Desirable: 40-60 High: >60 20 Desirable: <100 Near Optimal: 100-129 Borderline High: 130-159 High: 160-189 Very High: >189 Procedures Date Code Description Status 03/03/2019 039219647 Diabetic Retinal Eye Exam Completed 10/01/2018 [id number] Mammogram Completed 09/29/2017 [id number] Bone Mineral Density Test Completed 08/15/2014 [id number] Colonoscopy Completed Medical Devices Description No Information Available Encounters Type Date Location Provider Dx Diagnosis Office Visit 11/08/2019 [facility] Ramo E11.65 Type 2 diabetes 1:45p MD Yumiko mellitus with hyperglycemia Office Visit 11/01/2019 [facility] Ramo E11.65 Type 2 diabetes 1:45p MD Y[place]iko mellitus with hyperglycemia Office Visit 09/15/2019 [facility] M43.16 Spondylolisthesis, 12:00p [facility] MD Sybil lumbar region M51.36 Other intervertebral disc degeneration, lumbar region M47.26 Other spondylosis with radiculopathy, lumbar region Office Visit 09/07/2019 9:00a [facility] Primary Allison E11.65 Type 2 diabetes Care [place] Parra mellitus with hyperglycemia J44.9 Chronic obstructive pulmonary disease, unspecified Office 08/12/2019 [facility] Ramo E11.65 Type 2 diabetes Visit 10:45a MD Y[place]iko mellitus with hyperglycemia Office 08/04/2019 [place] M54.16 Radiculopathy, Visit 11:30a [facility] lumbar region M43.17 Spondylolisthesis, lumbosacral region Office Visit 07/22/2019 [facility] Primary Ramo E11.65 Type 2 diabetes 1:30p Care MD Yumiko mellitus with hyperglycemia Office Visit 07/15/2019 [facility] Primary Ramo E11.65 Type 2 diabetes 1:00p Care MD [place]iko mellitus with hyperglycemia M54.16 Radiculopathy, lumbar region J44.9 Chronic obstructive pulmonary disease, unspecified Office Visit 07/01/2019 Neurosurgery Solomon M54.16 Radiculopathy, 11:30a Services Of [place] lumbar region Office Visit 06/23/2019 [facility] Care Allison E11.65 Type 2 diabetes 2:00p [place] Parra mellitus with hyperglycemia F39 Unspecified mood [affective] disorder E03.9 Hypothyroidism, unspecified M16.11 Unilateral primary osteoarthritis, right hip M47.896 Other spondylosis, lumbar region J44.9 Chronic obstructive pulmonary disease, unspecified Office Visit 06/10/2019 [facility] Primary Ramo E11.65 Type 2 diabetes 2:15p Care MD Yumiko mellitus with hyperglycemia E03.9 Hypothyroidism, unspecified F41.1 Generalized anxiety disorder B35.1 Tinea unguium J44.9 Chronic obstructive pulmonary disease, unspecified F33.1 Major depressive disorder, recurrent, moderate Assessments Date Code Description Provider 12/07/2019 Z01.818 Encounter for other preprocedural [place] Pulliam examination 12/07/2019 M43.16 Spondylolisthesis, lumbar region [place] Pulliam 12/07/2019 M51.36 Other intervertebral disc degeneration, [place] Pulliam lumbar region 12/07/2019 M47.26 Other spondylosis with radiculopathy, [place] Pulliam lumbar region 12/07/2019 E11.65 Type 2 diabetes mellitus with [place] Pulliam hyperglycemia 11/08/2019 E11.65 Type 2 diabetes mellitus with [...] 09/07/2019 E11.65 Type 2 diabetes mellitus with [place] Pulliam hyperglycemia 09/07/2019 J44.9 Chronic obstructive pulmonary disease, Allison Parra PA unspecified 08/12/2019 E11.65 Type 2 diabetes [...] 06/23/2019 E11.65 Type 2 diabetes mellitus with [place] Pulliam hyperglycemia 06/23/2019 F39 Unspecified mood [affective] disorder Allison Parra, PA 06/23/2019 E03.9 Hypothyroidism, unspecified Allison Parra, PA 06/23/2019 M16.11 Unilateral primary osteoarthritis, right Allison Parra PA hip 06/23/2019 M47.896 Other spondylosis, lumbar region Allison Parra, PA 06/23/2019 J44.9 Chronic obstructive pulmonary disease, Allison Parra PA unspecified 06/10/2019 E11.65 Type 2 diabetes mellitus with Ramo Calderon MD hyperglycemia 06/10/2019 E03.9 Hypothyroidism, unspecified Ramo Calderon MD 06/10/2019 F41.1 Generalized anxiety disorder Ramo Calderon MD 06/10/2019 B35.1 Tinea unguium Ramo Calderon MD 06/10/2019 J44.9 Chronic obstructive pulmonary disease, Ramo Calderon MD unspecified 06/10/2019 F33.1 Major depressive disorder, recurrent, Ramo Calderon MD moderate Plan of Treatment Future Appointment(s):03/07/2020 9:30 am - [place] Pulliam at [facility]12/23/2019 9:30 am - Karin Del Rio MD at [facility]01/31/2020 12:00 pm - Hugo Devine MD at [facility]surgery [facility]01/05/2020 12:30 pm - Hugo Devine MD at [facility]surgery [facility]12/28/2019 7:30 am - Hugo Devine MD at [facility]surgery [facility]12/18/2019 10:30 am - Hugo Devine MD at [facility]surgery [facility]12/07/2019 - Allison Parra, PAZ01.818 Encounter for other preprocedural rptfqdzegikV37.16 Spondylolisthesis, lumbar jxtyfbK53.36 Other intervertebral disc degeneration, lumbar gjinxuL60.26 Other spondylosis with radiculopathy, lumbar oocfufB28.65 Type 2 diabetes mellitus with hyperglycemia Functional Status Description No Information Available Mental Status Description No Information Available Referrals Refer to Reason for Referral Status Appt Date Karin Dle Rio MD Pre-op clearance, COPD [Lumbar surgery planned Sent for 12/28/19] [address] [place] [address] [phone]
--- OUTSIDE RECORDS SUMMARY | 2019-12-28 05:58 | XMS REPORT | Continuity of Care Document ---
:1960 External Reference #:[id number] Author Name [place] Pulliam Address [address] [place] [address] Care Team Providers Name Role Phone Ramo Wiley III, MD - Ophthalmology Care Team Information Mail Room Clerk Karin Del Rio MD - Pulmonary Care Team Information Mail Room Clerk Disease Problems Active Problems Provider Date Degeneration of lumbar intervertebral disc Justen Amezcua M.D. Onset: 2017 Asthma Allison Parra PA Onset: 02/03/2019 Diabetes mellitus Allison Parra PA Onset: 02/04/2019 Note: noted 2018 Hypothyroidism Allison Parra PA Onset: 02/04/2019 Mechanical ptosis Allison Parra PA Onset: 03/04/2019 Note: OD Age-related cataract Allison Parra PA Onset: 03/04/2019 Note: mild 2019 Steatosis of liver [place] Pulliam Onset: 03/10/2019 Note: hepatomegaly Social History Type [...] Code Status Date Vaccine Reaction Lot # [id number] Given 12/07/2019 Influenza Virus Vaccine, risks and benefits Flu>3yr / Quadrivalent, Split, discussed. [id number] Preservative Free Vital Signs Date Vital Result [...] Result H/L Range Note Ua Routine 12/07/2019 [facility] Ua Specific [place] 1.020 Ua PH 6.0 Ua Color yellow Ua Appera clear Ua WBC neg. Ua Protein neg. Ua Glucose neg. Ua Ketones neg. Ua Bilirubin neg. Ua Urobilinogen neg. Ua Nitrite neg. Comp Metabolic 12/04/2019 [facility] Sodium 140 mmol/L Normal 135-[address] [place] [address] [phone] Potassium 4.6 mmol/L Normal 3.5-5.0 Chloride 107 [...] Egfr 85.1 >60 1 Laboratory test 12/04/2019 [facility] Hemoglobin A1c 7.1 % High 4.0-5.6 [address] (Glyco HGB) [place] [address] [phone] Lipid Profile 12/04/2019 [facility] Triglycerides 108 3 (Trig/Chol/HDL) [address] mg/[place] [address] [phone] Cholesterol 96 mg/dL 4 HDL Cholesterol 29.9 mg/dL 5 LDL Cholesterol 45 mg/dL 6 Urine Microalbumin 12/04/2019 [facility] Ur Microalbumin < 15.[address] (mg/L) mg/[place] [address] [phone] Urine Creatinine 126.70 mg/dL Urine Microalbumin/Creatinine TNP <31 7 Laboratory test 11/06/2019 [facility] Hemoglobin A1c 7.9 % High 4.0-5.6 [address] (Glyco HGB) [place] [address] [phone] Laboratory test 10/14/2019 [facility] Hemoglobin A1c 8.0 % High 4.0-5.6 [address] (Glyco HGB) [place] [address] [phone] CMP Panel 10/14/2019 [facility] Sodium 139 Normal 135-[address] mmol/[place] [address] [phone] Potassium 4.4 mmol/L Normal 3.5-5.0 Chloride 106 [...] Egfr 74.7 >60 10 Urine Microalbumin 10/14/2019 [facility] Ur Microalbumin < 15.[address] (mg/L) mg/[place] [address] [phone] Urine Creatinine 163.45 mg/dL Urine Microalbumin/Creatinine TNP <31 11 Laboratory test 07/27/2019 [facility] Hemoglobin A1c 8.7 % High 4.0-5.6 [address] (Glyco HGB) [place] [address] [phone] Comp Metabolic 07/27/2019 [facility] Sodium 139 Normal 135- [address] mmol/[place] [address] [phone] Potassium 4.5 mmol/L Normal 3.5-5.0 Chloride 105 [...] Egfr Non- 66.6 >60 Egfr 80.6 >60 13 Laboratory 07/16/2019 [facility] TSH (Thyroid 0.43 Normal 0.34 -5.60 test finding [address] Stim Horm) mcIU/[place] [address] [phone] 1 Because ethnic data is not always [...] in selective patients <6.0%. Please refer to [employer] diabetic care guidelines for further [...] in selective patients <6.0%. Please refer to [employer] diabetic care guidelines for further information. 9 Therapeutic target for the treatment of diabetes mellitus patients is <7% HBA1C, and in selective patients <6.0%. Please refer to [place] diabetic care guidelines for further [...] to calculate due to low microalbumin 12 Therapeutic target for the treatment of diabetes mellitus patients is <7% HBA1C, and in selective patients <6.0%. Please refer to [place] diabetic care guidelines for further information. 13 Because ethnic data is not always readily [...] dialysis) Procedures Date Code Description Status 03/03/2019 [id number] Diabetic Retinal Eye Exam Completed 10/01/2018 [id number] Mammogram Completed 09/29/2017 917778432 Bone Mineral Density Test Completed 08/15/2014 [id number] Colonoscopy Completed Medical Devices Description No Information Available Encounters Type Date Location Provider Dx Diagnosis Office Visit 11/08/2019 [facility] Ramo E11.65 Type 2 diabetes 1:45p MD Yumiko mellitus with hyperglycemia Office Visit 11/01/2019 [facility] Ramo E11.65 Type 2 diabetes 1:45p MD Yumiko mellitus with hyperglycemia Office Visit 09/15/2019 [facility] M43.16 Spondylolisthesis, 12:00p Services Of [place] Devine MD lumbar region M51.36 Other intervertebral disc degeneration, lumbar region M47.26 Other spondylosis with radiculopathy, lumbar region Office Visit 09/07/2019 9:00a [facility] Primary Allison E11.65 Type 2 diabetes Care [place] Parra mellitus with hyperglycemia J44.9 Chronic obstructive pulmonary disease, unspecified Office 08/12/2019 [facility] Ramo E11.65 Type 2 diabetes Visit 10:45a MD Yumiko mellitus with hyperglycemia Office 08/04/2019 [place] M54.16 Radiculopathy, Visit 11:30a [facility] lumbar region M43.17 Spondylolisthesis, lumbosacral region Office Visit 07/22/2019 [facility] Primary Ramo E11.65 Type 2 diabetes 1:30p Care MD Yumiko mellitus with hyperglycemia Office Visit 07/15/2019 [facility] Primary Ramo E11.65 Type 2 diabetes 1:00p Care MD Yumiko mellitus with hyperglycemia M54.16 Radiculopathy, lumbar region J44.9 Chronic obstructive pulmonary disease, unspecified Office Visit 07/01/2019 Neurosurgery Solomon M54.16 Radiculopathy, 11:30a Services [facility] [place] lumbar region Office Visit 06/23/2019 [facility] Allison E11.65 Type 2 diabetes 2:00p [place] Parra mellitus with hyperglycemia F39 Unspecified mood [affective] disorder E03.9 Hypothyroidism, unspecified M16.11 Unilateral primary osteoarthritis, right hip M47.896 Other spondylosis, lumbar region J44.9 Chronic obstructive pulmonary disease, unspecified Assessments Date Code Description Provider 12/07/2019 Z01.818 Encounter for other preprocedural Allison Parra PA examination 12/07/2019 M43.16 Spondylolisthesis, lumbar region Allison Parra PA 12/07/2019 M51.36 Other intervertebral disc degeneration, Allison Parra PA lumbar region 12/07/2019 M47.26 Other spondylosis with radiculopathy, Allison Parra PA lumbar region 12/07/2019 E11.65 Type 2 diabetes mellitus with Allison Parra PA hyperglycemia 11/08/2019 E11.65 Type 2 diabetes mellitus [...] Parra, PA 06/23/2019 E03.9 Hypothyroidism, unspecified Allison Jasper, PA 06/23/2019 M16.11 Unilateral primary osteoarthritis, right Allison Parra PA hip 06/23/2019 M47.896 Other spondylosis, lumbar region Allison Parra, PA 06/23/2019 J44.9 Chronic obstructive pulmonary disease, Allison Parra, PA unspecified Plan of Treatment Future Appointment(s):03/07/2020 9:30 am - [place] Pulliam at [facility]12/23/2019 9:30 am - Karin Del Rio MD at [facility]01/31/2020 12:00 pm - Hugo Devine MD at [facility]surgery [facility]01/05/2020 12:30 pm - Hugo Devine MD at [facility]12/28/2019 7:30 am - Hugo Devine MD at [facility]12/18/2019 10:30 am - Hugo Devine MD at [facility]12/07/2019 - Allison Parra, PAZ01.818 Encounter for other preprocedural hwgaguuhbcwY91.16 Spondylolisthesis, lumbar tawkaqA01.36 Other intervertebral disc degeneration, lumbar ztzggmR36.26 Other spondylosis with radiculopathy, lumbar skfgfsV57.65 Type 2 diabetes mellitus with hyperglycemia Functional Status Description No Information Available Mental Status Description No Information Available Referrals Refer to Dr Reason for Referral Status Appt Date Karin [...] please feel free to contact Cookie @ [phone]. Thank you. [address] [address] [phone]
--- OUTSIDE RECORDS SUMMARY | 2019-12-28 05:58 | XMS REPORT | Continuity of Care Document ---
:1960 External Reference #:[id number] Author Name [place] Pulliam (transmitted by agent of provider Arabella Bragg) Address [address] [place] [address] Care Team Providers Name Role Phone Ramo Wiley III, MD - Ophthalmology Care Team Information President Sales And Marketing Karin Del Rio MD - Pulmonary Care Team Information President Sales And Marketing Disease Problems Active Problems Provider Date Degeneration of lumbar intervertebral disc Justen Amezcua M.D. Onset: 2017 Asthma Allison Parra PA Onset: 02/03/2019 Note: COPD Diabetes mellitus Allison Parra PA Onset: 02/04/2019 Note: noted 2018 Hypothyroidism Allison Parra PA Onset: 02/04/2019 Mechanical ptosis Allison Parra PA Onset: 03/04/2019 Note: OD Age-related cataract Allison Parra PA Onset: 03/04/2019 Note: mild 2019 Steatosis of liver Allison Parra PA Onset: 03/10/2019 Note: hepatomegaly Hyperlipidemia Allison Parra PA Onset: 12/07/2019 Mixed anxiety and depressive disorder Allison Parra PA Onset: 12/07/2019 Social History Type Date [...] by mouth every 90tabs E11.65 100mg Tablets day MD Yumiko BD Pen use as directed E11.65 Unknown Needle/Short/Ultra-Fi ne/31G X 8mm 31G X 8 mm Misc History Medications Oxygen 3L via n/c cont, 1units Ramo Calderon MD 06/23/2019 - concentrator at home 07/22/2019 [facility] is supplier. Order add humidification to Ramo Calderon MD 06/23/2019 - oxygen concentrator 07/22/2019 Immunizations CPT Code Status Date Vaccine Reaction Lot # [id number] Given 12/07/2019 Influenza Virus Vaccine, risks and benefits Flu>3yr / Quadrivalent, Split, discussed. [id number] Preservative Free Vital Signs Date Vital Result [...] Result H/L Range Note Urinalysis Profile 12/14/2019 [facility] Urine Color Yellow [address] [place] [address] [phone] Urine Appearance Cloudy Urine Specific Wideman 1.027 Normal 1.010-1.030 Urine pH 5.0 Normal [...] Present Abnormal Absent CBC No Diff 12/14/2019 [facility] White Blood 7.2 10^3/uL Normal 3.5-10.[address] [place] [address] [phone] Red Blood Count 4.49 10^6/uL Normal 3.70-4.87 [...] fL Normal 7.4-10.4 Type & Screen 12/14/2019 [facility] Patient Blood [place] [address] [phone] Antibody Screen NEGATIVE Inr/Protime 12/14/2019 [facility] Inr 1.03 Normal 0.82-1.[address] [place] [address] [phone] Laboratory test 12/14/2019 [facility] Partial 33.2 Normal 26.0 -38.[address] [place] [address] Time PTT [phone] HCG 0.70 mIU/mL 2 Basic Metabolic 12/14/2019 [facility] Sodium 138 mmol/L Normal 135-[address] [place] [address] [phone] Potassium 4.5 mmol/L Normal 3.5-5.0 Chloride 105 mmol/L Normal 101-111 Co2 Carbon Dioxide 25 mmol/L Normal 22-32 Anion Gap 8 mmol/L Normal 2-11 Glucose 79 mg/dL Normal 70-100 Blood Urea Nitrogen 15 mg/dL Normal 6-24 Creatinine 0.83 mg/dL Normal 0.51-0.95 BUN/Creatinine Ratio 18.1 Normal 8-20 Calcium 9.9 mg/dL Normal 8.6-10.3 Egfr Non- 70.4 >60 Egfr 85.1 >60 3 Urine Culture And 12/14/2019 [facility] Urine Culture SEE RESULT [address] [place] [address] [phone] Ua Routine 12/07/2019 [facility] Ua Specific 1.020 Wideman Ua PH 6.0 Ua Color yellow Ua Appera clear Ua WBC neg. Ua Protein neg. Ua Glucose neg. Ua Ketones neg. Ua Bilirubin neg. Ua Urobilinogen neg. Ua Nitrite neg. Urine Microalbumin 12/04/2019 [facility] Ur Microalbumin < 15.0 Random (mg/L) mg/[place] [address] [phone] Urine Creatinine 126.70 mg/dL Urine Microalbumin/Creatinine TNP <31 5 Lipid Profile 12/04/2019 [facility] Triglycerides 108 mg/dL 6 (Trig/Chol/HDL) [address] [place] [address] [phone] Cholesterol 96 mg/dL 7 HDL Cholesterol 29.9 mg/dL 8 LDL Cholesterol 45 mg/dL 9 Laboratory test 12/04/2019 [facility] Hemoglobin A1c 7.1 % High 4.0-5.[address] (Glyco HGB) [place] [address] [phone] Comp Metabolic 12/04/2019 [facility] Sodium 140 Normal 135- [address] mmol/[place] [address] [phone] Potassium 4.6 mmol/L Normal 3.5-5.0 Chloride 107 [...] Egfr 85.1 >60 11 Laboratory test 11/06/2019 [facility] Hemoglobin A1c 7.9 % High 4.0-5.[address] (Glyco HGB) [place] [address] [phone] Laboratory test 10/14/2019 [facility] Hemoglobin A1c 8.0 % High 4.0-5.[address] (Glyco HGB) [place] [address] [phone] CMP Panel 10/14/2019 [facility] Sodium 139 Normal 135-145 101 mmol/[place] [address] [phone] Potassium 4.4 mmol/L Normal 3.5-5.0 Chloride 106 [...] Egfr 74.7 >60 14 Urine Microalbumin 10/14/2019 [facility] Ur Microalbumin < 15.[address] (mg/L) mg/[place] [address] [phone] Urine Creatinine 163.45 mg/dL Urine Microalbumin/Creatinine TNP <31 15 Laboratory test 07/27/2019 [facility] Hemoglobin A1c 8.7 % High 4.0-5.6 [address] (Glyco HGB) [place] [address] [phone] Comp Metabolic 07/27/2019 [facility] Sodium 139 Normal 135- [address] mmol/[place] [address] [phone] Potassium 4.5 mmol/L Normal 3.5-5.0 Chloride 105 [...] >60 Egfr 80.6 >60 17 Laboratory 07/16/2019 [facility] TSH (Thyroid 0.43 Normal 0.34 -5.60 test finding [address] Stim Horm) mcIU/[place] [address] [phone] 1 Standard intensity warfarin therapeutic range: 2.0-3.0 [...] [address]: Hugo Devine MD Acct: [id number] Unit: [id number] AGE: 59 Location: [facility] Re12/14/19 SEX: F Status: REG REF SPEC: [id number] WILSON: 12/14/19-[address]: Hugo Devine MD REQ: [id number] RECD: 12/14/19 STATUS: POPEYE MAI DR: Allison Parra PA _ SOURCE: URINE SPDESC: ORDERED: Urine Culture Procedure Result Reported Site Urine Culture Final 12/15/19- 1010 ML No Growth (<1,000 CFU/mL) * ML - Main Lab . END OF REPORT DEPARTMENT OF PATHOLOGY, [address] [place] [address] Mundo Dos Santos M.D. Director [facility] # [id number] 5 Unable to calculate due to low [...] in selective patients <6.0%. Please refer to [place] [employer] diabetic care guidelines for further [...] in selective patients <6.0%. Please refer to [place] [employer] diabetic care guidelines for further information. 13 Therapeutic target for the treatment of diabetes mellitus patients is <7% HBA1C, and in selective patients <6.0%. Please refer to [place] [employer] diabetic care guidelines for further [...] in selective patients <6.0%. Please refer to [place] [employer] diabetic care guidelines for further [...] dialysis) Procedures Date Code Description Status 03/03/2019 804282056 Diabetic Retinal Eye Exam Completed 10/01/2018 [id number] Mammogram Completed 09/29/2017 493312965 Bone Mineral Density Test Completed 08/15/2014 [id number] Colonoscopy Completed Medical Devices Description No Information Available Encounters Type Date Location Provider Dx Diagnosis Office Visit 12/07/2019 [facility] Allison Z01.818 Encounter for other 9:00a [place] Parra preprocedural examination M43.16 Spondylolisthesis, lumbar region M51.36 Other intervertebral disc degeneration, lumbar region M47.26 Other spondylosis with radiculopathy, lumbar region E11.65 Type 2 diabetes mellitus with hyperglycemia Z23 Encounter for immunization E78.5 Hyperlipidemia, unspecified E03.9 Hypothyroidism, unspecified J44.9 Chronic obstructive pulmonary disease, unspecified Office 11/08/2019 [facility] Ramo E11.65 Type 2 diabetes Visit 1:45p MD Yumiko mellitus with hyperglycemia Office 11/01/2019 [facility] Ramo E11.65 Type 2 diabetes Visit 1:45p MD Yumiko mellitus with hyperglycemia Office 09/15/2019 [facility] M43.16 Spondylolisthesis, Visit 12:00p [facility] Devine MD lumbar region M51.36 Other intervertebral disc degeneration, lumbar region M47.26 Other spondylosis with radiculopathy, lumbar region Office Visit 09/07/2019 9:00a [facility] Primary Allison E11.65 Type 2 diabetes Care [place] Par[place] mellitus with hyperglycemia J44.9 Chronic obstructive pulmonary disease, unspecified Office 08/12/2019 [facility] Ramo E11.65 Type 2 diabetes Visit 10:45a MD Yumiko mellitus with hyperglycemia Office 08/04/2019 Neurosurgery [place] Marquez M54.16 Radiculopathy, Visit 11:30a [facility] lumbar region M43.17 Spondylolisthesis, lumbosacral region Office Visit 07/22/2019 [facility] Primary Ramo E11.65 Type 2 diabetes 1:30p Care MD Yumiko mellitus with hyperglycemia Office Visit 07/15/2019 [facility] Primary Ramo E11.65 Type 2 diabetes 1:00p Care MD Yumiko mellitus with hyperglycemia M54.16 Radiculopathy, lumbar region J44.9 Chronic obstructive pulmonary disease, unspecified Office Visit 07/01/2019 Neurosurgery Solomon M54.16 Radiculopathy, 11:30a [facility] [place] Crockett lumbar region Office Visit 06/23/2019 [facility] Allison E11.65 Type 2 diabetes [...] 12/07/2019 Z01.818 Encounter for other preprocedural Allison [place] examination 12/07/2019 M43.16 Spondylolisthesis, lumbar region Allison [place], [place] 12/07/2019 M51.36 Other intervertebral disc degeneration, Allison [place], [place] lumbar region 12/07/2019 M47.26 Other spondylosis with radiculopathy, Allison [place], [place] lumbar region 12/07/2019 E11.65 Type 2 diabetes mellitus with Allison [place], [place] hyperglycemia 12/07/2019 Z23 Encounter for immunization Allison [place], [place] 12/07/2019 E78.5 Hyperlipidemia, unspecified Allison [place], [place] 12/07/2019 E03.9 Hypothyroidism, unspecified Allison [place], [place] 12/07/2019 J44.9 Chronic obstructive pulmonary disease, Allison [place], [place] unspecified 11/08/2019 E11.65 Type 2 diabetes [...] E11.65 Type 2 diabetes mellitus with Allison [place], [place] hyperglycemia 09/07/2019 J44.9 Chronic obstructive pulmonary disease, Allison [place], [place] unspecified 08/12/2019 E11.65 Type 2 diabetes [...] Parra, PA 06/23/2019 E03.9 Hypothyroidism, unspecified Allison [place], [place] 06/23/2019 M16.11 Unilateral primary osteoarthritis, right Allison Parra , PA hip 06/23/2019 M47.896 Other spondylosis, lumbar region Allison Parra, PA 06/23/2019 J44.9 Chronic obstructive pulmonary disease, Allisonsubhash Parra, [place] unspecified Plan of Treatment Future Appointment(s):03/07/2020 9:30 am - [place] Pulliam at [facility]12/23/2019 9:30 am - Karin Del Rio MD at [facility]01/31/2020 12:00 pm - Hugo Devine MD at [facility]01/05/2020 12:30 pm - Hugo Devine MD at [facility]12/28/2019 7:30 am - Hugo Devine MD at [facility]12/17/2019 - Hugo Devine MDM43.16 Spondylolisthesis, lumbar regionFollow up:RV one week, one month, three months postop.M51.36 Other intervertebral disc degeneration, lumbar lenecyW25.26 Other spondylosis with radiculopathy, lumbar region Functional [...] please feel free to contact Cookie @ [phone]. Thank you. [address] [place] [id number] [phone]
--- OUTSIDE RECORDS SUMMARY | 2019-12-28 05:58 | XMS REPORT | Continuity of Care Document ---
:1960 External Reference #:[id number] Author Name Ramo Calderon MD (transmitted by agent of provider Arabella Bragg) Address [address] [place] [address] Care Team Providers Name Role Phone Ramo Wiley III, MD - Ophthalmology Care Team Information Script Editor [phone] Ramo Calderon MD - Family Care Team Information Script Editor [phone] Medicine Problems Active Problems Provider Date Degeneration [...] a former Unknown smoker Smoking Status Reviewed: 11/08/19 Patient is a former smoker Exercise Type/Frequency [...] HCL 1 by mouth bid 60tabs E11.65 07/22/2019 500mg MD Yumiko Tablets Anoro Ellipta [...] M.D. needed BD Pen use as directed E11.65 Unknown Needle/Short/Ultra-Fi ne/31G X 8mm 31G X 8 mm Misc Januvia 1 by mouth every 90tabs E11.65 100mg Tablets day MD Yumiko Montelukast Sodium 1 by mouth every 90tabs Ramo 10mg day MD Yumiko Tablets Proair HFA inhale 1 to 2 8.500gm 108(90Base) puffs every 4 MD Yumiko mcg/Act Aerosol hours if needed Levothyroxine Sodium take 1 tablet by 90tabs mouth once daily MD Yumiko 125mcg Tablets Albuterol Sulfate 1 vial via 360ml nebulizer 4-6 MD Yumiko (2.5mg/3ML) 0.083% times daily as Nebulizer needed History Medications Oxygen 3L via n/c cont, 1units 06/23/2019 - concentrator at MD Yumiko 07/22/2019 home [facility] is supplier. Order add humidification Ramo 06/23/2019 - to oxygen MD Yumiko 07/22/2019 concentrator Terbinafine HCL 1 by mouth every day 90tabs B35.1 Ramo 05/20/2019 - MD Yumiko 09/07/2019 250mg Tablets Immunizations Description No Information Available Vital Signs Date Vital Result Comment 11/08/2019 1:39pm Weight 206.00 lb BP Systolic 118 mmHg BP Diastolic 84 mmHg 09/15/2019 12:23pm Height 68 inches 5'8" Weight 204.00 lb BP Systolic 126 mmHg BP Diastolic 82 mmHg Pain Level 5 BMI (Body Mass Index) 31.0 kg/m2 Results Test Acquired Date Facility Test Result H/L Range Note Laboratory test 11/06/2019 [facility] Hemoglobin A1c 7.9 % High 4.0-5.[address] (Glyco HGB) [place] [address] [phone] Laboratory test 10/14/2019 [facility] Hemoglobin A1c 8.0 % High 4.0-5.[address] (Glyco HGB) [place] [address] [phone] CMP Panel 10/14/2019 [facility] Sodium 139 mmol/L Normal 135- [address] [place] [address] [phone] Potassium 4.4 mmol/L Normal 3.5-5.0 Chloride 106 [...] Egfr Non- 61.7 >60 Egfr 74.7 >60 3 Urine Microalbumin 10/14/2019 [facility] Ur Microalbumin < 15.[address] (mg/L) mg/[place] [address] [phone] Urine Creatinine 163.45 mg/dL Urine Microalbumin/Creatinine TNP <31 4 Laboratory test 07/27/2019 [facility] Hemoglobin A1c 8.7 % High 4.0-5.6 [address] (Glyco HGB) [place] [address] [phone] Comp Metabolic 07/27/2019 [facility] Sodium 139 Normal 135- [address] mmol/[place] [address] [phone] Potassium 4.5 mmol/L Normal 3.5-5.0 Chloride 105 [...] Egfr Non- 66.6 >60 Egfr 80.6 >60 6 Laboratory 07/16/2019 [facility] TSH (Thyroid 0.43 Normal 0.34 -5.60 test finding [address] Stim Horm) mcIU/[place] [address] [phone] Laboratory 06/11/2019 [facility] Hemoglobin 9.2 % High 4.0- 5.6 7 test finding [address] A1c ([place] [address] HGB) [phone] TSH (Thyroid Stim Horm) 2.37 mcIU/mL Normal 0.34-5.60 Vitamin D Total 25(Oh) 22.8 ng/mL Normal 20-50 8 Comp Metabolic 06/11/2019 [facility] Sodium 140 mmol/L Normal 135-[address] [place] [address] [phone] Potassium 3.9 mmol/L Normal 3.5-5.0 Chloride 107 [...] Egfr Non- 54.2 >60 Egfr 65.6 >60 9 Lipid Profile 06/11/2019 [facility] Triglycerides 87 mg/dL 10 (Trig/Chol/HDL) [address] [place] [address] [phone] Cholesterol 116 mg/dL 11 HDL Cholesterol 39.5 mg/dL 12 LDL Cholesterol 59 mg/dL 13 Urine Microalbumin 06/11/2019 [facility] Ur Microalbumin 30.4 mg /L Random [address] (mg/L) [place] [address] [phone] Urine Creatinine 288.08 mg/dL Urine Microalbumin/Creatinine 10.5 Normal <31 1 Therapeutic target for the treatment of diabetes mellitus patients is <7% HBA1C, and in selective patients <6.0%. Please refer to [place] [employer] diabetic care guidelines for further information. 2 Therapeutic target for the treatment of diabetes mellitus patients is <7% HBA1C, and in selective patients <6.0%. Please refer to [place] [employer] diabetic care guidelines for further information. 3 Because ethnic data is not always [...] 5 Kidney failure <15 (or dialysis) 4 Unable to calculate due to low microalbumin 5 Therapeutic target for the treatment of diabetes mellitus patients is <7% HBA1C, and in selective patients <6.0%. Please refer to [place] [employer] diabetic care guidelines for further information. 6 Because ethnic data is not always readily [...] 15-29 5 Kidney failure <15 (or dialysis) 7 Therapeutic target for the treatment of diabetes mellitus patients is <7% HBA1C, and in selective patients <6.0%. Please refer to [place] [employer] diabetic care guidelines for further information. 8 Total 25-Hydroxyvitamin D2 and D3 (25-OH-VitD) <10 ng/mL (severe deficiency) 10-19 ng/mL (mild to moderate deficiency) 20-50 ng/mL (optimum levels) 51-80 ng/mL (increased risk of hypercalciuria) >80 ng/mL (toxicity possible) 9 Because ethnic data is not always readily [...] 15-29 5 Kidney failure <15 (or dialysis) 10 Desirable: <150 Borderline High: 150-199 High: 200-499 Very High: >500 11 Desirable: <200 Borderline High: 200-239 High: >239 12 Low: <40 Desirable: 40-60 High: >60 13 Desirable: <100 Near Optimal: 100-129 Borderline High: 130-159 High: 160-189 Very High: >189 Procedures Date Code Description Status 03/03/2019 210966537 Diabetic Retinal Eye Exam Completed 10/01/2018 56249544 Mammogram Completed 09/29/2017 258940001 Bone Mineral Density Test Completed 08/15/2014 70521950 Colonoscopy Completed Medical Devices Description No Information Available Encounters Type Date Location Provider Dx Diagnosis Office Visit 11/01/2019 [facility] Ramo E11.65 Type 2 diabetes 1:45p MD Yumiko mellitus with hyperglycemia Office Visit 09/15/2019 [facility] M43.16 Spondylolisthesis, 12:00p [facility] Devine MD lumbar region M51.36 Other intervertebral disc degeneration, lumbar region M47.26 Other spondylosis with radiculopathy, lumbar region Office Visit 09/07/2019 9:00a [facility] Primary Allison E11.65 Type 2 diabetes Care [place] Par[place] mellitus with hyperglycemia J44.9 Chronic obstructive pulmonary disease, unspecified Office 08/12/2019 [facility] Ramo E11.65 Type 2 diabetes Visit 10:45a MD Yumiko mellitus with hyperglycemia Office 08/04/2019 Neurosurgery [place] Mar[place] M54.16 Radiculopathy, Visit 11:30a [facility] lumbar region M43.17 Spondylolisthesis, lumbosacral region Office Visit 07/22/2019 [facility] Primary Ramo E11.65 Type 2 diabetes 1:30p Care MD Yumiko mellitus with hyperglycemia Office Visit 07/15/2019 [facility] Primary Ramo E11.65 Type 2 diabetes 1:00p Care MD Yumiko mellitus with hyperglycemia M54.16 Radiculopathy, lumbar region J44.9 Chronic obstructive pulmonary disease, unspecified Office Visit 07/01/2019 Neurosurgery Solomon M54.16 Radiculopathy, 11:30a [facility] [place] lumbar region Office Visit 06/23/2019 [facility] Allison E11.65 Type 2 diabetes 2:00p [place] Parra mellitus with hyperglycemia F39 Unspecified mood [affective] disorder E03.9 Hypothyroidism, unspecified M16.11 Unilateral primary osteoarthritis, right hip M47.896 Other spondylosis, lumbar region J44.9 Chronic obstructive pulmonary disease, unspecified Office Visit 06/10/2019 [facility] Primary Ramo E11.65 Type 2 diabetes 2:15p Care MD Yumiko mellitus with hyperglycemia E03.9 Hypothyroidism, unspecified F41.1 Generalized anxiety disorder B35.1 Tinea unguium J44.9 Chronic obstructive pulmonary disease, unspecified F33.1 Major depressive disorder, recurrent, moderate Office Visit 05/20/2019 9:30a [facility] Primary Lalison Z01.818 Encounter for other Care [place] Parra preprocedural examination M16.11 Unilateral primary osteoarthritis, right hip B35.1 Tinea unguium E11.65 Type 2 diabetes mellitus with hyperglycemia E03.9 Hypothyroidism, unspecified F41.1 Generalized anxiety disorder Assessments Date Code Description Provider 11/08/2019 E11.65 Type 2 diabetes mellitus with Ramo Calderon MD hyperglycemia 11/01/2019 E11.65 Type 2 diabetes mellitus with Ramo Calderon MD hyperglycemia 10/05/2019 M43.16 Spondylolisthesis, lumbar region Hugo Devine MD 10/05/2019 M51.36 Other intervertebral disc degeneration, Vassilios Dimspencerulos, MD lumbar region 10/05/2019 M47.26 Other spondylosis [...] MD hyperglycemia 08/04/2019 M54.16 Lumbar radiculopathy Solomon [place] PA 08/04/2019 M43.17 Spondylolisthesis L5/S1 level Solomon [...] 06/23/2019 F39 Unspecified mood [affective] disorder Allison [place], [place] 06/23/2019 E03.9 Hypothyroidism, unspecified Allison [place], [place] 06/23/2019 M16.11 Unilateral primary osteoarthritis, right Allison Parra , PA hip 06/23/2019 M47.896 Other spondylosis, lumbar region Allison Parra, PA 06/23/2019 J44.9 Chronic obstructive pulmonary disease, Allison Parra, PA unspecified 06/10/2019 E11.65 Type 2 diabetes mellitus with Ramo Calderon MD hyperglycemia 06/10/2019 E03.9 Hypothyroidism, unspecified Ramo Calderon MD 06/10/2019 F41.1 Generalized anxiety disorder Ramo Calderon MD 06/10/2019 B35.1 Tinea unguium Ramo Calderon MD 06/10/2019 J44.9 Chronic obstructive pulmonary disease, Ramo Calderon MD unspecified 06/10/2019 F33.1 Major depressive disorder, recurrent, Ramo Calderon MD moderate 05/20/2019 Z01.818 Encounter for other preprocedural [place] Pulliam examination 05/20/2019 M16.11 Unilateral primary osteoarthritis, right [place] Pulliam hip 05/20/2019 B35.1 Tin[place] See 05/20/2019 E11.65 Type 2 diabetes mellitus with [place] Pulliam hyperglycemia 05/20/2019 E03.9 Hypothyroidism, unspecified Allison Parra, PA 05/20/2019 F41.1 Generalized anxiety disorder [place] Pulliam Plan of Treatment Future Appointment(s):01/10/2020 10:30 am - [place] Pulliam at [facility]11/08/2019 - Ramo Calderon MDE11.65 Type 2 diabetes mellitus with hyperglycemiaNew Labs:Comp Metabolic Panel, Ordered: 11/08/19Hemoglobin A1c ( Glyco HGB), Ordered: 11/08/19Lipid Profile (Trig/Chol/HDL), Ordered: Urine Microalbumin Random, Ordered: 11/08/19 Functional Status Description No Information Available Mental Status Description No Information Available Referrals Description No Information Available
[2019-12-28] MEDS ORDERED: Lactated Ringers 1000 ML Bag* 1,000 ML IV SCH (06:00)
[2019-12-28] MEDS ORDERED: Bacitracin INJECTION* 50,000 UNITS ONE (06:37)
[2019-12-28] MEDS ORDERED: ceFAZolin 2 GM PREMIX in ORs 2 GM/50 ML BAG ONE (06:42)
[2019-12-28] MEDS ORDERED: Bupivacaine 0.5% W/EPI SDV* 10 ML VIAL INJ ONE (07:10)
[2019-12-28] MEDS ORDERED: Propofol* 10 MG/ML 20 ML BTL ONE (07:34)
[2019-12-28] MEDS ORDERED: Remifentanil* 2 MG VIAL ONE ×3 (07:35→10:18)
[2019-12-28] MEDS ORDERED: Rocuronium* 10 MG/ML VIAL ONE (07:35)
[2019-12-28] MEDS ORDERED: HYDROmorphone INJ1* 1 MG/ML SYRINGE IV PRN (08:47)
[2019-12-28] MEDS ORDERED: Ondansetron INJ* 2 MG/ML VIAL IV PRN (08:47)
[2019-12-28] MEDS ORDERED: Naloxone* 0.4 MG/ML 1 ML VIAL IV PRN (08:47)
[2019-12-28] MEDS ORDERED: Dexamethasone IV* 4 MG/ML 1 ML (4 MG) ONE (12:20)
[2019-12-28] MEDS ORDERED: Ketorolac INJ* 30 MG/ML 1 ML VIAL ONE (12:20)
[2019-12-28] MEDS ORDERED: HYDROmorphone INJ1* 1 MG/ML SYRINGE ONE (12:54)
[2019-12-28] MEDS ORDERED: oxyCODONE TAB* 5 MG TAB PO PRN (13:00)
[2019-12-28] MEDS ORDERED: Acetaminophen TAB* 325 MG PO PRN (13:00)
[2019-12-28] MEDS ORDERED: Magnesium Hydroxide LIQ* 30 ML UDC PO PRN (13:00)
[2019-12-28] MEDS ORDERED: NS 0.9% 1000 ML** 1,000 ML IV SCH (14:45)
[2019-12-28] MEDS ORDERED: Albuterol HFA INHALER* 8 gm MDI INH PRN (15:01)
[2019-12-28] MEDS ORDERED: Albuterol 2.5 MG/3 ML NEB.SOL* (0.083%) INH PRN (15:01)
[2019-12-28] MEDS ORDERED: Dextrose 50% Syringe 50 ML* 25 GM/50 ML SYRINGE IV PUSH PRN (15:03)
--- NOTE | 2019-12-28 16:18 | OP ---
DATE OF OPERATION: 12/28/19 - ROOM #350 DATE OF : 60 SURGEON: Hugo Devine MD SNOW REMOVING SUPERVISOR: BURTON Alcala. The case was done with the assistance of BURTON because of the complexity of the case. ANESTHESIA: General. PRE-OP DIAGNOSIS: Degenerative disk disease, L4-5 with spondylolisthesis. POST-OP DIAGNOSIS: Degenerative disk disease, L4-5 with spondylolisthesis. OPERATIVE PROCEDURE: The patient underwent right L4-5 MIS TLIF with reexploration of L4-5 disk space, lysis of adhesions, with PEEK expandable interbody cage, iliac crest bone graft, DBX and local bone graft, with pedicle screws L4-L5, with intraoperative navigation and intraoperative electrophysiological monitoring. ESTIMATED BLOOD LOSS: 30 cc. COMPLICATIONS: None. SUMMARY: The patient is a very pleasant 59-year-old female with complaints of severe back pain radiating to the right lower extremity. The patient has a history of previous right L4-[address] Amezcua. The patient had MRI findings consistent with degenerative disk disease, disk height loss, and grade 1 spondylolisthesis at L4-5 with severe neural foraminal stenosis. The patient failed conservative treatment modalities and she was offered the option of surgical intervention. After explaining the expectations, limitations, and possible complications of the procedure to the patient and her with complications including, but not limited to bleeding, infection, risk of injury to adjacent structures, coma, paralysis, , need for additional procedures, anesthesia risks, stroke, blindness, cancer, instability, hardware failure, adjacent level disease, pseudoarthrosis, spinal fluid leak, loss of bladder or bowel control, injury to intraabdominal contents, need for tracheostomy or gastrostomy, need for prolonged ICU stay or prolonged rehabilitation; the patient was agreeable to proceed with surgery and informed consent was obtained. The patient understood that her condition may not improve and in fact may get worse after surgery and that she may need to have additional procedures in the future. She also understood that operative plan may be modified according to intraoperative findings and conditions. The patient understood also that it would be abandoned or done in more than 1 stages and that she may require prolonged rehabilitation, prolonged hospitalization, prolonged ICU stay, need for tracheostomy or gastrostomy. DESCRIPTION OF PROCEDURE: The patient was brought to the operating room and was placed under general anesthesia by the anesthesia team. She was carefully positioned prone on the Tu table and all bony prominences were meticulously padded. The skin was prepped and draped in the standard fashion. The previous incision was identified. After appropriate surgical pause and patient identification, a small incision over the left iliac crest was performed after infiltrating the skin with local anesthetic. With the assistance of Jamshidi needle, a Corex needle was inserted and bone graft was harvested. Through the same incision, the navigation star was secured in place and intraoperative O-arm imaging was obtained and the patient's data was transferred to the navigation platform. With the assistance of navigation with intraoperative navigation, the trajectory of the pedicles at L4 and L5 was marked on the skin. After also infiltrating the skin with local anesthetic, 2 paramedian incisions were performed with #10 surgical blade. The incision was carried down through the subcutaneous tissue. With the use of high-speed drill and awl-tip tap, the pedicles were cannulated and Medtronic Voyager ATS screws were inserted with 5.5 x 45 dimensions for the L4 level and 6.5 x 45 for the L5 level. Then, attention was brought to perform the placement of the interbody cage. The METRx tubular retractor was inserted over a series of dilators with the assistance of stereotactic navigation and the operative microscope was brought into the field. The previous scar tissue was identified from the previous surgical intervention and this was carefully dissected free from the bone edges with use of curettes. High-speed drill was used to perform an extended laminotomy and resection of part of the pars as well as a medial facetectomy. This was completed with use of Kerrison punches and the pedicle of L5 was skeletonized. Significant amount of scar tissue was encountered as expected from the previous surgical intervention. This was very carefully dissected free with #4 [place], bipolar cautery. The disk space was then gently identified. After incising the annulus fibrosus, a diskectomy was performed. Of note the disk space was extremely collapsed and access into the disk space was gained with use of high-speed drill. An osteotome was initially used in order to enter the disk space. Over a series of dilators, the disk space was prepared and pituitary rongeurs were used to remove any disk fragments. A mixture of locally harvested bone graft during the laminectomy and facetectomy part of the procedure as well as iliac crest bone graft and DBX was then inserted and filled the disk space prior to inserting an Elevate PEEK interbody cage from Medtronic, which was also filled with the same bone graft mixture. Then, attention was brought to insert the expandable cage and the cage was then gently expanded. After removing the jewel inserter, confirmation of meticulous hemostasis, copious irrigation, and meticulous inspection, the tubular retractor was then gently removed. Prior to removal of the tubular retractor, the thecal sac and the nerve roots were found to be free of any pressure phenomenon. Next, the dorsal fascia defect was approximated with 0 interrupted Vicryl sutures and after incising the distance between the pedicle screw heads, 2 cobalt chrome rods were inserted through the same stab wound incisions. These were secured with screw head caps and intraoperative O-arm imaging confirmed excellent placement of all hardware. The extension towers and the navigation star were then removed, and after copious irrigation, confirmation of meticulous hemostasis, and meticulous inspection, the wounds were closed by layers. The dorsal fascia defects were approximated with 0 interrupted Vicryl sutures while the subcutaneous tissue was approximated with inverted interrupted 2-0 Vicryl sutures. The skin was then covered with Dermabond and sterile dressings. At the end of the procedure, all counts were reported to be correct. The patient remained hemodynamically stable throughout the case and intraoperative electrophysiological monitoring remained stable throughout the case. The patient was then turned supine, was extubated, and was transferred to Recovery in excellent condition. [id number]/CPS #: [id number] DANIELE
[2019-12-28] MEDS ORDERED: Insulin GLARGINE(*) 1 UNITS UNIT SUBCUT SCH (16:30)
--- NOTE | 2019-12-28 16:44 | CONS ---
CONSULTATION REPORT: DATE OF CONSULT: 12/28/19 ATTENDING PHYSICIAN WHILE IN THE HOSPITAL: Dr. Jerry Rush (dictated by KY Nassar). REQUESTING PROVIDER: Dr. Devine. HISTORY OF PRESENT ILLNESS: Roxana Du is a 59-year-old white female with past medical history significant for diabetes mellitus type 2, COPD, asthma, hypothyroidism and hyperlipidemia, who presented to the hospital today for elective neurosurgery with Dr. Devine. The patient has been having ongoing back pain radiating down her right lower extremity that did not improve with conservative management and elected for surgery with Dr. Devine today. She received an L4- L5 TLIF. She is evaluated on the floor after surgery and she is feeling well. She has already walked to the bathroom and feels like her pain is very tolerable. She has no complaints. She denies abdominal pain, nausea, difficulty breathing, chest pain, dizziness, lightheadedness, weakness, numbness or tingling in her lower extremities, or changes in bowel or bladder. PAST MEDICAL HISTORY: 1. Asthma. 2. COPD. 3. Hypothyroidism. 4. Diabetes mellitus type 2. 5. Diverticulosis. 6. Arthritis. 7. Mechanical ptosis of the left eye. 8. Fatty liver. 9. Hyperlipidemia. 10. Depression/anxiety. 11. Hypertension. PAST SURGICAL HISTORY: 1. Lumbar diskectomy, L4-L5. 2. Right hip arthroscopy with partial labral excision. 3. Skin lesion resection from back. 4. Right bunionectomy. 5. Skin lesion excision from the neck. HOME MEDICATIONS: 1. Metformin 500 mg p.o. b.i.d. 2. Albuterol inhaler 2 puffs inhaled q.4 hours p.r.n. shortness of breath/ wheezing. 3. Albuterol nebulizer 2.5 inhaled 4 times daily p.r.n. shortness of breath/ wheezing. 4. Januvia 100 mg p.o. q.a.m. 5. Zoloft 100 mg p.o. q.a.m. 6. Singulair 10 mg p.o. q.a.m. 7. Synthroid 125 mcg p.o. q.a.m. 8. Insulin glargine 100 units subcu at 1400. 9. Lipitor 10 mg p.o. q.a.m. 10. Lisinopril 2.5 mg p.o. q.a.m. 11. Anoro Ellipta 1 inhalation daily. ALLERGIES: 1. Hives to CODEINE. 2. Hives to IBUPROFEN. FAMILY HISTORY: Her father related to lung cancer. Mother in her 70s from unclear causes, though she did have a history of asthma. SOCIAL HISTORY: The patient is a previous smoker. She quit approximately a year ago and prior to that was smoking for approximately 40 years with approximately one- third of a pack per day. She denies alcohol use and drug use. She lives with her and they have 3 adult children. 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 REVIEW OF SYSTEMS: An 11-point review of systems was completed and all pertinent positives and negatives are above in the HPI. All other systems are negative. PHYSICAL EXAM: Vital Signs: Temperature 97.7, pulse 92, respiratory rate 18, oxygen saturation 99% on room air, blood pressure 112/72. General: An obese white female, who appears older than stated age, lying on the edge of hospital bed, appearing comfortable, in no acute distress. Eyes: PERRL. Sclerae anicteric. ENT: Mucous membranes moist. Lungs: Clear to auscultation throughout. Cardio: Regular rate and rhythm without murmurs, rubs, or gallops. Abdomen: Soft, nontender, nondistended. Extremities: No clubbing, cyanosis , or edema. Neuro: The patient is alert and oriented x3. Strength is 5/5 in bilateral lower extremities. Sensation to light touch is grossly intact and symmetrical in the lower extremities. Skin: Minor abrasions to bilateral cheeks, which appear consistent with recent positioning in the operating room, less than 1 cm in diameter. LABORATORY DATA: Glucose at 1247 is 109. ASSESSMENT AND PLAN: Roxana Du is a 59-year-old white female with past medical history significant for asthma, chronic obstructive pulmonary disease, hypothyroidism, diabetes mellitus type 2, fatty liver and hyperlipidemia, who presents for lumbar surgery with Dr. Devine today. Hospital Medicine has been consulted for co-management of chronic medical conditions. 1. Diabetes. I will be holding the patient's home metformin. I will be decreasing her home insulin to 30 units daily and ordering lispro sliding scale with fingersticks a.c. Her hemoglobin A1c was last checked last month and was found to be 7.1. I anticipate she will be able to return to her normal diabetes medication regimen when she is discharged from the hospital. I will be holding her home Januvia as well. 2. Hypothyroidism. I will be continuing the patient's home Synthroid. 3. Hyperlipidemia. I will be continuing the patient's home Lipitor. 4. Hypertension. I will be continuing the patient's home lisinopril and I will add holding parameters for the lisinopril to hold for a systolic blood pressure less than 100. 5. Depression/anxiety. I will continue the patient's home Zoloft. 6. Asthma/chronic obstructive pulmonary disease. The patient is respirating well with good oxygenation at this time. I have no concern for acute exacerbation. I will continue her home inhaler, Anoro Ellipta and p.r.n. albuterol therapies as well as her home Singulair. 7. DVT prophylaxis: DVT prophylaxis per management of primary neurosurgical team. It appears SCDs are the choice at this time. 8. Code status: The patient is full code. 9. Disposition: Per Neurosurgery. Thank you for allowing us to participate in the care of this patient. We will follow along during this hospitalization. KY NASSAR [id number]/CPS #: [id number] DANIELE
[2019-12-28] MEDS: Insulin LISPRO* 1 UNITS UNIT SUBCUT SCH (17:16)
[2019-12-28] MEDS: oxyCODONE TAB* 5 MG TAB PO PRN (18:14)
[2019-12-29] MEDS: oxyCODONE TAB* 5 MG TAB PO PRN ×3 (00:05→09:14)
[2019-12-29] MEDS ORDERED: Levothyroxine TAB* 125 MCG TAB PO SCH (06:00)
[2019-12-29] MEDS ORDERED: Montelukast Sodium TAB* 10 MG PO SCH (09:00)
[2019-12-29] MEDS ORDERED: Tiotropium Brom/Olodaterol MDI INH SCH (09:00)
[2019-12-29] MEDS ORDERED: Atorvastatin* 10 MG TAB PO SCH (09:00)
[2019-12-29] MEDS ORDERED: Sertraline* 100 MG TAB PO SCH (09:00)
[2019-12-29] MEDS ORDERED: Lisinopril TAB* 5 MG PO SCH ×2 (09:00)
[2019-12-29] MEDS: Insulin LISPRO* 1 UNITS UNIT SUBCUT SCH ×2 (09:02→12:55)
[2019-12-29 11:30] VITALS: BP 100/64
--- NOTE | 2019-12-29 23:26 | DS ---
CC: Dr. Devine * DISCHARGE SUMMARY: DATE OF ADMISSION: 12/28/19 DATE OF DISCHARGE: 12/29/19 PRIMARY CARE PHYSICIAN: Ramo Calderon MD ATTENDING PHYSICIAN: Dr. Rush * (dictated by Robbin Gastelum NP) PRIMARY DIAGNOSIS: L4-L5 transforaminal lumbar interbody fusion. SECONDARY DIAGNOSES: 1. Asthma. 2. Chronic obstructive pulmonary disease. 3. Hypothyroid. 4. Diabetes. 5. Diverticulosis. 6. Arthritis. 7. Mechanical ptosis of the left eye. 8. Fatty liver. 9. Hyperlipidemia. 10. Anxiety/depression. 11. Hypertension. PROCEDURE WHILE IN THE HOSPITAL: L4-L5 TLIF. STUDIES WHILE IN THE HOSPITAL: Lumbar spine x-ray: Status post spinal fusion. DISCHARGE HOME MEDICATIONS: New home medication: Oxycodone 10 mg p.o. q.6 hours p.r.n. pain. I-STOP #[id number]. Continued home medications: 1. Metformin 500 mg p.o. b.i.d. 2. Ventolin 2 puffs inhalations q.4 hours p.r.n. 3. Albuterol 2.5 mg inhalations q.i.d. p.r.n. 4. Januvia 100 mg p.o. q.a.m. 5. Zoloft 100 mg p.o. q.a.m. 6. Montelukast 10 mg p.o. q.a.m. 7. Levothyroxine 125 mcg p.o. 0800. 8. Insulin glargine 100 units subcu at 1630. 9. Atorvastatin 10 mg p.o. q.a.m. 10. Lisinopril 2.5 mg p.o. q.a.m. 11. Anoro Ellipta 62.5/25 one inhalation q.a.m. HISTORY OF PRESENT ILLNESS/HOSPITAL COURSE: Mrs. Rxoana Du is a 59-year-old female with past medical history significant for diabetes, COPD, asthma, hypothyroid, hyperlipidemia; who presented to the hospital on 12/28/19 for an elective procedure with Dr. Devine. Please see history and physical dictated by Dr. Devine and consultation report dictated by KY Nassar, for complete summary of the events leading up to hospitalization, but in short, the patient failed conservative treatment, therefore had an elective surgery with Dr. Devine of L4-L5 TLIF. During this hospitalization, the patient has recovered nicely from surgery. Her pain is currently controlled with p.o. oxycodone. She is ambulating without difficulty. She is urinating without difficulty. She has not had a bowel movement, but she is passing flatus. Her vital signs have been stable. She has been afebrile. She complains of no weakness. She complains of no numbness and tingling. Her neuro exam is benign. REVIEW OF SYSTEMS: The patient reports back pain at surgical site at a "6" out of 10. she reports this is tolerable. The patient denies weakness, numbness, and tingling, urinary incontinence, bowel incontinence, shortness of breath, chest pain, nausea, vomiting, fever, chills. PHYSICAL EXAMINATION: General: Mrs. Du is a 59-year-old female who is sitting on the edge of the bed. She appears to be in no acute distress. She appears her stated age. Vital Signs: Temp 98.6, HR 94, RR 16, O2 saturation 96 % on room air, BP 100/64. HEENT: Sclerae without icterus. EOMs intact. PERRLA. Oral mucosa is moist without lesion. Posterior pharynx is clear. Neck : Supple. No lymphadenopathy. Respiratory: Symmetrical chest expansion. No accessory muscle use. Lungs are clear to auscultation. Cardiac: S1, S2 present. Regular rate and rhythm. No murmurs, rubs, or gallops. Abdomen: Abdomen is soft and nontender. Bowel sounds normoactive. Extremities: Skin is warm and smooth bilaterally. No edema. No clubbing or cyanosis. Pedal pulses 2+ bilaterally. No pain or deformities. Neuro: The patient is awake, alert, and oriented x4. Cranial nerves II through XII are grossly intact. Muscle strength is 5/5 in the upper and lower extremities. The patient is ambulating with steady gait. Skin: Grossly intact. Dressings to back and lumbar region are clean, dry, and intact. DISCHARGE PLAN/FOLLOWUP: 1. Status post L4-L5 TLIF: The patient is to not lift, bend, or drive. The patient is to follow up with Dr. Devine in 1 week. The patient is not to bath or swim. The patient can shower in a few days. The patient is to keep the dressing to her lower back clean, dry, and intact. The patient may take oxycodone for pain. Discussed using [id number] measures first and then moving to oxycodone if needed. The patient was educated on signs and symptoms of new or worsening condition, when to return to the emergency department and/ or call Dr. Devine. She stated understanding. 2. Asthma: The patient should continue her inhalers. 3. COPD: The patient should continue her inhalers as previously recommended. 4. Hypothyroid: The patient should continue her levothyroxine. 5. Diabetes: We will resume the patient on her normal home regimen and she is to follow up with her primary care. 6. anxiety/depression: The patient should continue her Zoloft. 7. Hyperlipidemia: The patient should continue her statin. 8. High blood pressure: The patient should continue her lisinopril. 9. Followup: The patient is to follow up with her primary care in 1 to 3 days. The patient should follow up with Dr. Devine in 1 week as already planned. 10. Education: The patient is educated at length about signs and symptoms of new or worsening condition and when to return to the emergency department. The patient stated understanding. This is a summarized report of a complex medical history and hospital stay. For further details, please see entire medical record. TIME SPENT: Approximately 45 minutes was spent on this discharge, greater than half that time was spent [id number] with the patient discussing discharge plans and instructions. This plan has been discussed with my attending Dr. Rush who is in agreement with my plan of care. ROBBIN GASTELUM, JASON [id number]/[facility] #: [id number] DANIELE
== END 2019-12-29 13:35 | disposition home or self-care (01) | DRG 460 ==
LOC: AA 05:55 → SSU 13:00
PROVIDERS: ADMIT Neurological Surgery; ATTEND Internal Medicine
PROC: 0SB20ZZ Excision of Lumbar Vertebral Disc, Open Approach (ICD-10-PCS; 2019-12-28)
PROC: 8E0WXBZ Computer Assisted Procedure of Trunk Region (ICD-10-PCS; 2019-12-28)
PROC: 4A11X4G Monitoring of Peripheral Nervous Electrical Activity, Intraoperative, External Approach (ICD-10-PCS; 2019-12-28)
PROC: 0SG00AJ Fusion of Lumbar Vertebral Joint with Interbody Fusion Device, Posterior Approach, Anterior Column, Open Approach (ICD-10-PCS; principal; 2019-12-28 07:30)
DX: M48.061 Spinal stenosis, lumbar region without neurogenic claudication (principal); J44.9 Chronic obstructive pulmonary disease, unspecified; E03.9 Hypothyroidism, unspecified; M19.90 Unspecified osteoarthritis, unspecified site; K57.90 Diverticulosis of intestine, part unspecified, without perforation or abscess without bleeding; M43.16 Spondylolisthesis, lumbar region; M51.16 Intervertebral disc disorders with radiculopathy, lumbar region; M47.26 Other spondylosis with radiculopathy, lumbar region; I10 Essential (primary) hypertension; K76.0 Fatty (change of) liver, not elsewhere classified; E78.5 Hyperlipidemia, unspecified; F41.8 Other specified anxiety disorders; E11.36 Type 2 diabetes mellitus with diabetic cataract; H02.412 Mechanical ptosis of left eyelid; Z88.5 Allergy status to narcotic agent; Z88.8 Allergy status to other drugs, medicaments and biological substances; Z79.4 Long term (current) use of insulin; Z79.890 Hormone replacement therapy; Z79.899 Other long term (current) drug therapy; Z87.891 Personal history of nicotine dependence
CPT/HCPCS: 72100; 76000; A9270-GY; J0690; J1100; J1170; J1885; J2704; J3535